=== PATIENT | female | born 1965 | race Caucasian/White ===

== ENCOUNTER → 2019-05-15 10:47 | Outpatient (CLI) | payer OTHER, SELFPAY ==
--- NOTE | 2019-05-15 10:50 | MM_ITS ---
MM Dig screening mamm BI w/CAD CAD Screening COMPARISON: Digital mammograms with CAD 07/11/2017 and needle localization and post biopsy specimen radiographs left breast 02/22/2017 INDICATION: There is a history of breast cancer patient's sister diagnosed in her 50s. There is been previous biopsy left breast for benign disease. TECHNIQUE: Standard CC and MLO images were obtained. R2 CAD reviewed. FINDINGS: Scattered fibroglandular densities are seen in the subareolar regions and central portions of each breast. Again noted is moderate post biopsy scarring left breast note appears less prominent on the previous study which was performed couple months after the biopsy. There is no suspicious lesion and no suspicious microcalcifications. IMPRESSION: Fibrofatty parenchyma with no suspicious lesion seen BI-RADS Category: 2 Benign Finding(s) RECOMMENDED FOLLOW-UP: 1YR - 1 YEAR FOLLOW-UP (A letter has been sent to the patient regarding results of the study.)
== END ==
PROVIDERS: PCP Internal Medicine; Visit Provider Nurse Practitioner Obstetrics & Gynecology
DX: Z12.31 Encounter for screening mammogram for malignant neoplasm of breast (principal)
CPT/HCPCS: 77067

== ENCOUNTER → 2020-04-06 13:47 | Outpatient (CLI) | payer OTHER, SELFPAY ==
[2020-04-06 15:38] LABS: Basophils % 0.4 % (0.1-2.0); Eosinophils # 0.1 K/mm3 (0.0-0.4); Eosinophils % 1.2 % (0.1-12.0); Hematocrit 42.6 % (37.0-47.0); Lymphocytes # 1.6 K/mm3 (0.7-4.5); Lymphocytes % 16.6 % (10-50); Mean Corpuscular HGB Conc 32.9 g/dL (31.8-35.4); Mean Corpuscular Hemoglobin 32.2 pg (27.0-31.2); Mean Platelet Volume 7.9 fl (7.4-10.4); Monocytes # 0.4 K/mm3 (0.1-1.0); Monocytes % 3.8 % (1.7-9.3); Neutrophils # 7.5 K/mm3 (1.8-7.8); Neutrophils % 77.9 % (37.0-80.0); Platelet Count 238 K/mm3 (142-424); Red Blood Count 4.35 M/mm3 (4.20-5.40); Red Cell Distribution Width 13.4 % (11.5-17.5); White Blood Count 9.6 K/mm3 (4.8-10.8)
[2020-04-06 15:58] LABS: Alanine Aminotransferase 23 U/L (12-78); Albumin Level 4.4 g/dl (3.5-5.0); Albumin/Globulin Ratio 1.7 (1.1-1.8); Alkaline Phosphatase 85 U/L (38-126); Anion Gap 14.4 mEq/L (5-15); Aspartate Amino Transferase 27 U/L (14-36); Bilirubin,Total 0.5 mg/dl (0.2-1.3); Blood Urea Nitrogen 9 mg/dl (7-17); Calcium 9.2 mg/dl (8.4-10.2); Carbon Dioxide 31 mmol/L (22.0-30.0); Chloride 98 mmol/L (98-107); Chol/HDL Ratio 1.8 (1-3.5); Cholesterol 126 mg/dl (140-200); Estimated Glomerular Filt Rate 88 ml/min (>60); GFR (African American) 106 ML/MIN (>60); Globulin 2.6 g/dL (1.3-3.2); Glucose 84 mg/dl (74-100); HDL Cholesterol 70 mg/dl (40-60); Potassium 4.4 mmoL/L (3.5-5.1); Sodium 139 mmol/L (136-145); Triglycerides 76 mg/dl (30-150); VLDL Cholesterol 15 mg/dL (0-40)
[2020-04-06 16:11] LABS: Direct LDL Cholesterol 54.49 mg/dL (100-129)
[2020-04-06 16:17] LABS: Free Thyroxine Index 2.8 ug/dL (5.93-13.13); T4 (Thyroxine) 10.1 ug/dl (5.53-11.0); Triiodothryronine (T3) Uptake 28 % (23.5-40.5)
== END ==
PROVIDERS: Visit Provider Nurse Practitioner Obstetrics & Gynecology
DX: Z00.00 Encounter for general adult medical examination without abnormal findings (principal); R53.82 Chronic fatigue, unspecified
CPT/HCPCS: 36415; 80053; 80061; 84436; 84443; 84479; 85025

== ENCOUNTER → 2020-06-02 10:43 | Outpatient (CLI) | payer OTHER, SELFPAY ==
--- NOTE | 2020-06-02 10:44 | MM_ITS ---
PROCEDURE: MM DIG SCREENING MAMM BI W/CAD Digital Breast Tomosynthesis Included CLINICAL INDICATION: screening xmg There is a history of breast cancer patient's sister diagnosed at age 47. there has been a previous biopsy left breast for benign disease. COMPARISON: MG DMDXUL DIG MAMM-DX UNI-LT W/CAD from 02/22/2017 MG DMSB DIG MAMM-SCREEN DUSTIN W/CAD from 07/11/2017 MG DIG MAMM-SCREEN DUSTIN from 05/15/2019 TECHNIQUE: Standard CC and MLO images and 3D Tomosynthesis was obtained. R2 CAD reviewed. FINDINGS: Moderate scattered fibroglandular densities are seen in both breast primarily subareolar regions. Stable but somewhat prominent post biopsy scarring is again seen central portion left breast with biopsy clips. There is no new or suspicious lesion in either breast and no suspicious microcalcifications. IMPRESSION: Fibrofatty parenchyma with stable post biopsy scarring left breast BI-RAD Category: 2 Benign Finding(s) FOLLOW-UP: 1YR 1 Year Follow-up (A letter has been sent to the patient regarding results of the study.) Dictated by: Dr. Denny Casillas MD 06/03/2020 08:14 Dr. Denny Casillas MD in [place] 06/03/2020 08:14
[2020-06-02 13:00] LABS: Free Thyroxine Index 4.1 ug/dL (5.93-13.13); T4 (Thyroxine) 12.7 ug/dl (5.53-11.0); Triiodothryronine (T3) Uptake 32 % (23.5-40.5)
[2020-06-02 13:14] LABS: Thyroid Stimulating Hormone 4.16 uIU/mL (0.465-4.68)
== END ==
PROVIDERS: PCP Internal Medicine; Visit Provider Nurse Practitioner Obstetrics & Gynecology
DX: Z12.31 Encounter for screening mammogram for malignant neoplasm of breast (principal)
CPT/HCPCS: 36415; 77063; 77067; 84436; 84443; 84479

== ENCOUNTER → 2020-06-02 11:18 | Outpatient (CLI) | payer OTHER, SELFPAY | PROVIDERS: Visit Provider Nurse Practitioner Obstetrics & Gynecology | DX: Z01.419 Encounter for gynecological examination (general) (routine) without abnormal findings (principal) | CPT/HCPCS: 36415; 84436; 84443; 84479 ==

== ENCOUNTER 2021-05-21 13:21 | Emergency (ER) | payer OTHER, SELFPAY ==
[2021-05-21 13:35] VITALS: BP 130/91; PULSE 79; RESP 22; TEMP 37.4; O2SAT 96; BMI 38.4
--- NOTE | 2021-05-21 14:02 | HMH.EDUTC ---
[facility] Disposition Clinical Impression: Sinusitis Qualifiers: Sinusitis location: unspecified location Chronicity: unspecified Qualified Code(s): J32.9 - Chronic sinusitis, unspecified Disposition: Home, Self-Care Condition on Discharge: Good Instructions: Sinusitis, Sinus Headache, DI for Sinusitis, Amoxicillin and Clavulanic Acid Additional Instructions: *Monitor Temp, Over the counter Motrin or Tylenol as directed/as needed Tylenol every 4 hours and Motrin every 6 hours (as long as your family doctor has told you that you can take it) for fever or pain. and straight to ER if unable to lower temp less than 101.0 after medication given *Warm salt water gargles may help to soothe the throat *Throat Lozenges *Warm fluids like tea with honey may help to soothe the throat *Sleep elevated *Humidifier/Vaporizer *Flonase 2 sprays in each nostril daily but be aware that it may take 2-3 days before you notice improvement Follow up IMMEDIATELY for new or worsening symptoms or no Noticeable improvement over the next 48-72 hours. 911 for difficulty breathing or swallowing You were tested for today for COVID19 your test result should be back in the next 24-48 hours, you may call to the [facility] to see if your test results are back in the next 48 hours [phone] [facility] hours are 9am-9pm You was given a handout with instructions for Self Quarantine and Self isolation for while you wait on test results and what to do if they are positive If you are positive the Health Dept will be contacting you also Prescriptions: Amoxicillin/Potassium Clav [Augmentin 875-125 Tablet] 1 tab PO Q12H 7 Days #14 tab Transmission Status: Pending to [facility] Fluticasone Propionate [Flonase 50mcg nasal spray 16gm] 1 spr NS DAILY #1 bottle Transmission Status: Pending to [facility] methylPREDNISolone [Medrol 4mg tab] 4 mg PO DIRECTED #21 tab Transmission Status: Pending to [facility] Referrals: Arnaldo Freed [Primary Care Provider] - As needed Time of Disposition: 14:13 Medical Decision Making - Jean Marie Inquiry Pt receiving controlled substance: No Jean Marie was queried for this patient: No Vital Signs: 05/21/21 13:35 Temperature 99.3 F Temperature Source Oral Pulse Rate [Right Brachial] 79 Respiratory Rate 22 Blood Pressure [Right Arm] 130/91 H Blood Pressure Mean [Right Arm] 104 Blood Pressure Source [Right Arm] Automatic Cuff Blood Pressure Position [Right Arm] Sitting 02 Sat by Pulse Oximetry 96 Oxygen Delivery Method Room Air Medical Decision Narrative: Patient states that she has taken augmentin and medrol dose pack in the past without complications or reactions [facility] HPI - General Stated complaint: congestion, sinus Time Seen by Provider: 05/21/21 14:02 Mode of Arrival: Ambulatory Source of Information: Patient Limitations: No Limitations Description of Symptoms (Recalled from Triage Doc. by RN): PATIENT C/O RUNNY NOSE, SNEEZING, AND SINUS HEADACHE SINCE YESTERDAY HEENT Symptoms (Recalled from RN notes): Yes Resp Symptoms (Recalled from RN notes): No Skin Symptoms (Recalled from RN notes): No MS Symptoms (Recalled from RN notes): No Functional Status (Recalled from RN notes): WNL - History of Present Illness Provider Complaint: Patient states that she felt like she had a sinus infection coming on for a couple of weeks and has continued to get worse State that for the last couple of days she has been having pain and pressure like feeling behind her eyes, feeling of pressure in her teeth, sinus headache with yellowish green mucous and cough and sneezing - Related Data Home Medications Medication Instructions Recorded Confirmed albuterol sulfate 90 mcg/actuation INHALATION 17 Days #18 g 10/04/18 02/15/21 aerosol inhaler sertraline 50 mg tablet PO 30 Days #30 tab 10/04/18 02/15/21 budesonide-formoterol HFA 160 2 puff INHALATION g 02/15/21 02/15/21 mcg-4.5 mcg/actuation aerosol
[2021-05-21 14:18] VITALS: BP 130/91; PULSE 79; RESP 22; TEMP 37.4; O2SAT 96
== END 2021-05-21 14:21 | disposition home or self-care (01) ==
PROVIDERS: Emergency Provider Nurse Practitioner; PCP Internal Medicine
DX: J32.9 Chronic sinusitis, unspecified (principal); F33.1 Major depressive disorder, recurrent, moderate
CPT/HCPCS: 99202; G0463; U0003

== ENCOUNTER → 2021-06-07 10:29 | Outpatient (CLI) | payer OTHER, SELFPAY ==
--- NOTE | 2021-06-07 10:30 | MM_ITS ---
PROCEDURE: MM DIG SCREENING MAMM BI W/CAD Digital Breast Tomosynthesis Included CLINICAL INDICATION: screening xmg COMPARISON: MG DMSB DIG MAMM-SCREEN DUSTIN W/CAD from 07/11/2017 MG MM DIG SCREENING MAMM BI W/CAD from 05/15/2019 MG MM DIG SCREENING MAMM BI W/CAD from 06/02/2020 TECHNIQUE: Standard CC and MLO images and 3D Tomosynthesis was obtained. R2 CAD reviewed. FINDINGS: Average fibroglandular tissue. No malignant appearing mass or malignant-appearing microcalcification. There postsurgical changes in the retroareolar region on the left with architectural distortion similar to the previous exam consistent with post surgical scarring. IMPRESSION: Benign findings. No change with no evidence of malignancy. Post biopsy scarring on the BI-RAD Category: 2 Benign Finding FOLLOW-UP: 1 YR 1 Year Follow-up (A letter has been sent to the patient regarding results of the study.) Dictated by: Ari Bar MD 06/11/2021 09:34 Ari Bar MD in [place] 06/11/2021 09:34
== END ==
PROVIDERS: PCP Internal Medicine; Visit Provider Nurse Practitioner Obstetrics & Gynecology
DX: Z12.31 Encounter for screening mammogram for malignant neoplasm of breast (principal)
CPT/HCPCS: 77063; 77067

== ENCOUNTER 2021-07-01 18:35 | Emergency (ER) | payer OTHER, SELFPAY ==
[2021-07-01 19:52] VITALS: BP 144/90; PULSE 75; RESP 18; TEMP 36.9; O2SAT 97; BMI 35.2
[2021-07-01 19:55] VITALS: BP 144/90; PULSE 75; RESP 18; TEMP 36.9
--- NOTE | 2021-07-01 20:12 | HMH.EDUTC ---
[facility] Disposition Clinical Impression: Exposure to COVID-19 virus Disposition: Home, Self-Care Condition on Discharge: Good Instructions: DI for COVID-19 (Suspected or Confirmed ), Preventing the Spread of Coronavirus Discharge Instructions Additional Instructions: *Monitor Temp, Over the counter Motrin or Tylenol as directed/as needed Tylenol every 4 hours and Motrin every 6 hours (as long as your family doctor has told you that you can take it) for fever or pain. and straight to ER if unable to lower temp less than 101.0 after medication given Follow up IMMEDIATELY for new or worsening symptoms or no Noticeable improvement over the next 48-72 hours. 911 for difficulty breathing or swallowing You were tested for today for COVID19 your test result should be back in the next 24-48 hours, You was given handout to access [facility] portal to get your results if you cant access or no internet access you may call the [facility] You was given a handout with instructions for Self Quarantine and Self isolation for while you wait on test results and what to do if they are positive If you are positive the Health Dept will be contacting you also Make sure to take your Vitamins Vit. C Vit D and Zinc if you can take them Referrals: Arnaldo Freed [Primary Care Provider] - As needed Forms: Work/School Release Medical Decision Making - Jean Marie Inquiry Pt receiving controlled substance: No Jean Marie was queried for this patient: No Vital Signs: 07/01/21 19:52 07/01/21 19:55 Temperature 98.4 F 98.4 F Temperature Source Oral Pulse Rate 75 Pulse Rate [Left] 75 Respiratory Rate 18 18 Blood Pressure 144/90 H Blood Pressure [Right Arm] 144/90 H Blood Pressure Mean [Right Arm] 108 02 Sat by Pulse Oximetry 97 Orders (Tests/Meds): ORDERS Category Date Time Status Covid-19 Nasal PCR ([facility]) Routine Lab 07/01/21 19:52 Received [facility] HPI - General Stated complaint: covid symptoms/test Time Seen by Provider: 07/01/21 20:12 Mode of Arrival: Ambulatory Source of Information: Patient Limitations: No Limitations Description of Symptoms (Recalled from Triage Doc. by RN): covid test. exposed. AREVALO HEENT Symptoms (Recalled from RN notes): Yes (AREVALO) Resp Symptoms (Recalled from RN notes): No Skin Symptoms (Recalled from RN notes): No MS Symptoms (Recalled from RN notes): No Functional Status (Recalled from RN notes): na - History of Present Illness Provider Complaint: Patient states that son lives in the house with her and today he tested positive for COVID states that she has been around him and she had a headache on and off for 3 days so when they found out he was positive today they came in to get tested too - Related Data Home Medications Medication Instructions Recorded Confirmed albuterol sulfate 90 mcg/actuation INHALATION 17 Days #18 g 10/04/18 02/15/21 aerosol inhaler sertraline 50 mg tablet PO 30 Days #30 tab 10/04/18 02/15/21 budesonide-formoterol HFA 160 2 puff INHALATION g 02/15/21 02/15/21 mcg-4.5 mcg/actuation aerosol inhaler Previous Rx's Medication Instructions Recorded levothyroxine 75 mcg tablet See Rx Instructions .ROUTE 08/31/20 .COMPLEX #87 tab Amoxicillin/Potassium Clav 1 tab PO Q12H 7 Days #14 tab 05/21/21 [Augmentin 875-125 Tablet] Fluticasone Propionate [Flonase 1 spr NS DAILY #1 bottle 05/21/21 50mcg nasal spray 16gm] methylPREDNISolone [Medrol 4mg 4 mg PO DIRECTED #21 tab 05/21/21 tab] Allergies Allergy/AdvReac Type Severity Reaction Status Date / Time No Known Allergies Allergy Verified 02/15/21 10:34 - Worker's Comp Is this a Worker's Comp case?: No [facility] History - Hepatitis A Screen Drug use history?: No High risk sexual behaviors?: No History of sexually transmitted infection?: No Currently employed?: No Childcare worker?: No Do you have indoor plumbing?: Yes Do you have electricity?: Yes Attestation statement:: This patient has been
== END 2021-07-01 20:31 | disposition home or self-care (01) ==
PROVIDERS: Emergency Provider Nurse Practitioner; PCP Internal Medicine
DX: Z20.822 Contact with and (suspected) exposure to COVID-19 (principal); R51.9 Headache, unspecified
CPT/HCPCS: 99202; C9803; G0463; U0003; U0005

== ENCOUNTER → 2021-07-19 16:15 | Outpatient (CLI) | payer OTHER, SELFPAY | PROVIDERS: PCP Internal Medicine; Visit Provider Nurse Practitioner | DX: Z20.822 Contact with and (suspected) exposure to COVID-19 (principal) | CPT/HCPCS: C9803; U0003; U0005 ==

== ENCOUNTER 2022-05-14 13:33 | Emergency (ER) | payer OTHER, SELFPAY ==
[2022-05-14 13:42] VITALS: BP 154/90; PULSE 99; RESP 16; TEMP 36.8; O2SAT 96; BMI 36.9
--- NOTE | 2022-05-14 13:53 | HMH.EDUTC ---
[facility] Disposition Clinical Impression: COPD exacerbation Disposition: Home, Self-Care Condition on Discharge: Good Instructions: Chronic Obstructive Pulmonary Disease, COPD: When to Call for Help Additional Instructions: Drink plenty of fluids. Take tylenol or ibuprofen for pain or fever. Take the medications as directed. Follow up with your regular doctor. GO TO THE ER FOR ANY WORSENING SYMPTOMS Quarantine until you know the results of your covid-19 test. Notify your school or workplace of your results and follow their instructions regarding return to work/school. Prescriptions: Azithromycin [Azithromycin 500mg Tab] 500 mg PO DAILY 5 Days #5 tab Transmission Status: Received by [facility] Benzonatate [Benzonatate 100mg cap] 100 mg PO TIDP PRN #30 cap PRN Reason: Cough Transmission Status: Received by [facility] methylPREDNISolone [Medrol] 4 mg PO DIRECTED 6 Days #21 packet Transmission Status: Received by [facility] Referrals: Arnaldo Freed [Primary Care Provider] - Time of Disposition: 14:02 Medical Decision Making - Medical Records Medical records reviewed: No: I reviewed the patient's medical records. - Jean Marie Inquiry Pt receiving controlled substance: No Vital Signs: 05/14/22 13:42 05/14/22 14:03 Temperature 98.3 F 98.3 F Temperature Source Oral Pulse Rate 99 H Pulse Rate [Left] 99 H Respiratory Rate 16 16 Blood Pressure 154/90 H Blood Pressure [Right Arm] 154/90 H Blood Pressure Mean [Right Arm] 111 02 Sat by Pulse Oximetry 96 [facility] HPI - General Stated complaint: soa Time Seen by Provider: 05/14/22 13:54 Mode of Arrival: Ambulatory Source of Information: Patient Limitations: No Limitations Description of Symptoms (Recalled from Triage Doc. by RN): patient comes in with complaints of shortness of air, patient does have COPD, and patient believes she may be having a flare up. HEENT Symptoms (Recalled from RN notes): No Resp Symptoms (Recalled from RN notes): Yes Skin Symptoms (Recalled from RN notes): No MS Symptoms (Recalled from RN notes): No Functional Status (Recalled from RN notes): n/a - History of Present Illness Provider Complaint: She states that for the past 3 days she has had worsening shortness of breath. She has a history of copd. She feels like she is having a an exacerbation of this. She is on 02 @ 1 lpm while she sleeps and prn. - Related Data Home Medications Medication Instructions Recorded Confirmed albuterol sulfate 90 mcg/actuation INHALATION 17 Days #18 g 10/04/18 08/30/21 aerosol inhaler sertraline 50 mg tablet PO 30 Days #30 tab 10/04/18 08/30/21 diphenhydramine HCl 25 mg capsule 25 mg PO cap 08/13/21 08/30/21 fluticasone furoate 100 1 inh INHALATION each 08/13/21 08/30/21 mcg-vilanterol 25 mcg/dose inhalation powder montelukast 10 mg tablet 10 mg PO tab 08/13/21 08/30/21 prednisone 10 mg tablet 10 mg PO tab 08/13/21 08/30/21 Previous Rx's Medication Instructions Recorded Fluticasone Propionate [Flonase 1 spr NS DAILY #1 bottle 05/21/21 50mcg nasal spray 16gm] oxybutynin chloride 5 mg tablet 5 mg PO TID #90 tab 08/30/21 levothyroxine 75 mcg tablet See Rx Instructions .ROUTE 09/13/21 .COMPLEX #87 tab clobetasol 0.05 % scalp solution 1 applic TOPICAL BID #100 ml 01/26/22 hydrocortisone 2.5 % topical cream 1 applic TOPICAL TID PRN #100 g 01/26/22 Azithromycin [Azithromycin 500mg 500 mg PO DAILY 5 Days #5 tab 05/14/22 Tab] Benzonatate [Benzonatate 100mg 100 mg PO TIDP PRN #30 cap 05/14/22 cap] methylPREDNISolone [Medrol] 4 mg PO DIRECTED 6 Days #21 05/14/22 packet Allergies Allergy/AdvReac Type Severity Reaction Status Date / Time No Known Allergies Allergy Verified 05/14/22 13:59 - Worker's Comp Is this a Worker's Comp case?: No [facility] History - Hepatitis A Screen Attestation statement:: This patient has been screened for Hepatitis A
[2022-05-14 14:03] VITALS: BP 154/90; PULSE 99; RESP 16; TEMP 36.8
== END 2022-05-14 14:08 | disposition home or self-care (01) ==
PROVIDERS: Emergency Provider Nurse Practitioner Family; PCP Internal Medicine
DX: J44.1 Chronic obstructive pulmonary disease with (acute) exacerbation (principal)
CPT/HCPCS: 99212; G0463

== ENCOUNTER → 2023-04-07 09:50 | Outpatient (CLI) | payer OTHER, SELFPAY ==
--- NOTE | 2023-04-07 09:51 | MM_ITS ---
PROCEDURE INFORMATION: Exam: MG Bilateral Screening 3D Mammography Exam date and time: 04/07/2023 9:49 AM Age: 57 years old Clinical indication: Screening examination. History of benign left excisional biopsy. Her sister had breast cancer at age 47. TECHNIQUE: Imaging protocol: Bilateral Screening tomosynthesis and 2D mammography including computer-aided detection (CAD) when performed. COMPARISON: 1. MG MM DIG SCREENING MAMM BI W/CAD 06/07/2021 10:30 AM 2. MG MM DIG SCREENING MAMM BI W/CAD 06/02/2020 10:49 AM 3. MG MM DIG SCREENING MAMM BI W/CAD 05/15/2019 11:11 AM 4. MG DMSB DIG MAMM-SCREEN DUSTIN W/CAD 07/11/2017 9:09 AM FINDINGS: MAMMOGRAPHY: Breast composition: There are scattered areas of fibroglandular density. Mass: No suspicious mass. Architectural distortion: Stable left central scarring and surgical clips with history of benign excisional biopsy. Calcifications: No suspicious calcifications. Asymmetric density: None. Skin thickening: None. Axillary adenopathy: None. IMPRESSION: No mammographic evidence of malignancy. Annual screening is recommended unless otherwise clinically indicated. ASSESSMENT: BI-RADS Category 2: Benign
== END ==
PROVIDERS: PCP Internal Medicine; Visit Provider Nurse Practitioner Obstetrics & Gynecology
DX: Z12.31 Encounter for screening mammogram for malignant neoplasm of breast (principal)
CPT/HCPCS: 77063; 77067

== ENCOUNTER 2023-12-18 15:19 | Emergency (ER) | payer OTHER, SELFPAY ==
[2023-12-18 15:30] VITALS: BP 124/75; PULSE 94; RESP 18; TEMP 36.7; O2SAT 92; BMI 34.9
--- NOTE | 2023-12-18 15:39 | EXP.UTC ---
Discharge Plan Disposition Patient Disposition: Home, Self-Care Condition: Good Prescriptions Prescriptions: New oseltamivir [Tamiflu] 75 mg capsule 75 mg PO BID Qty: 10 0RF methylprednisolone 4 mg Tablets,Dose Pack 4 mg PO DIRECTED 6 Days Qty: 21 0RF Rx Instructions: Take 1 pack as directed for 6 days guaifenesin [Mucinex] 600 mg tablet extended release 12hr 600 - 1,200 mg PO BIDP PRN (Reason: Congestion) Qty: 30 0RF amoxicillin [amoxicillin] 500 mg tablet 500 mg PO TID 10 Days Qty: 30 0RF No Action albuterol sulfate 2.5 mg /3 mL (0.083 %) solution for nebulization 2.5 mg inhalation BID Patient Comments: USE 1 VIAL IN NEBULIZER TWICE DAILY sertraline 50 mg tablet 50 mg PO DAILY 30 Days Qty: 30 albuterol sulfate 90 mcg/actuation HFA aerosol inhaler 1 inh INHALATION NEEDED PRN (Reason: Wheezing) 17 Days Qty: 18 levothyroxine 75 mcg tablet See Rx Instructions .ROUTE .COMPLEX Qty: 90 3RF Dose Instruction: TAKE 1 TABLET BY MOUTH ONCE DAILY-NEEDS AN APPOINTMENT FOR FURTHER REFILLS Rx Instructions: TAKE 1 TABLET BY MOUTH ONCE DAILY-NEEDS AN APPOINTMENT FOR FURTHER REFILLS Referrals Follow up/Referrals: Provider,Referral, MD [Primary Care Provider] - See instructions Activity Restrictions/Add. Instructions Additional Instructions/Restrictions: Drink plenty of fluids. Take tylenol or ibuprofen for pain or fever. Take the medications as directed. Follow up with your regular doctor. GO TO THE ER FOR ANY WORSENING SYMPTOMS Clinical Impressions Clinical Impression: Influenza A Instructions Patient Instructions: Influenza, DI for Influenza -- Adult, Oseltamivir Discharge ED Provider: Shayan Mancini [facility] General Stated complaint: flu exposure Time Seen by Provider: 12/18/23 15:39 History of Present Illness Provider Complaint: She states that for the past 2 days she has felt bad, had body aches, chills and malaise. Related Data Home Medications Medication Instructions Recorded Confirmed albuterol sulfate 90 mcg/actuation 1 inh inhalation NEEDED PRN 10/04/18 12/18/23 aerosol inhaler Wheezing 17 days #18 grams sertraline 50 mg tablet 50 mg PO DAILY 30 days #30 tabs 10/04/18 12/18/23 albuterol sulfate 2.5 mg/3 mL 2.5 mg inhalation BID 09/27/23 12/18/23 (0.083 %) solution for nebulization Previous Rx's Medication Instructions Recorded levothyroxine 75 mcg tablet See Rx Instructions .Route 10/30/23 .COMPLEX #90 tabs amoxicillin 500 mg tablet 500 mg PO TID 10 days #30 tabs 12/18/23 guaifenesin 600 mg tablet, 600 - 1,200 mg PO BIDP PRN 12/18/23 extended release 12 hr (Mucinex) Congestion #30 tabs methylprednisolone 4 mg tablets in 4 mg PO DIRECTED 6 days #21 tabs 12/18/23 a dose pack oseltamivir 75 mg capsule (Tamiflu) 75 mg PO BID #10 caps 12/18/23 Allergies Allergy/AdvReac Type Severity Reaction Status Date / Time No Known Allergies Allergy Verified 12/18/23 15:46 [facility] Disclaimer: The information contained in this section may have been updated after the patient was seen, as this information can be updated by other users. Medical History (Updated 12/18/23 @ 15:49 by Shayan Mancini APRN) Anxiety History of hypothyroidism Surgical History No significant past surgical history Family History Sister Cancer Mother Coronary artery disease Other Diabetes Social History Smoking Status: Former smoker alcohol intake: never substance use type: denies use current occupational status: other Travel in the last 8 weeks: None ROS Obtained: Yes All systems reviewed & no additional complaints except as documented Constitutional Constitutional: Reports chills and Reports fever(s) Eyes Eyes: Denies eye discharge ENT Ears, Nose, Mouth, and Throat: Reports as per HPI Cardiovascular Cardiovascular: Denies chest pain Respiratory Respiratory: Denies chest congestion and Reports cough Gastrointestinal Gastrointestingal: Reports nausea; Denies abdominal pain, constipation, cramping, diarrhea or vomiting Musculoskeletal Musculoskeletal: Denies arthralgias Integumentary/Breasts Skin/Breast: Denies rash Neurologic Neurologic: Denies paresthesias Physical Exam General General appearance: alert and in no apparent distress Eye Eye exam: Present normal appearance, PERRL and EOMI ENT ENT exam: Present mucous membranes moist and normal external ear exam Expanded ENT Exam External ear exam: Present normal external inspection TM/Canal exam: Bilateral TM: erythema and bulging Nose exam: Absent sinus tenderness Nasal speculum exam: Bilateral: normal Mouth exam: Present normal external inspection; Absent drooling Teeth exam: Present normal inspection Throat exam: Present tonsillar erythema and tonsillomegaly Neck Neck exam: Present normal inspection, full ROM and trachea midline; Absent tenderness, lymphadenopathy or thyromegaly Chest Chest inspection: Present normal inspection and symmetric chest wall rise; Absent tenderness or rash Respiratory Respiratory exam: Present normal lung sounds bilaterally; Absent respiratory distress, wheezes, stridor or accessory muscle use Cardiovascular Cardiovascular exam: Present regular rate, normal rhythm and normal heart sounds Abdominal Exam Abdominal exam: Present soft; Absent distention, tenderness, guarding, rebound or rigidity Extremities Exam Extremities exam: Present normal inspection, full ROM and normal capillary refill; Absent tenderness or calf tenderness Back Exam Back exam: Present normal inspection and full ROM; Absent tenderness Neurological Exam Neurological exam: Present alert and oriented X3 Psychiatric Psychiatric exam: Present normal affect and normal mood Skin Skin exam: Present warm, dry, intact and normal color Lymphatic Lymphatic Findings: no adenopathy Medical Decision Making Medical Records Medical records reviewed: No I reviewed the patient's medical records. Jean Marie Inquiry Pt receiving controlled substance: No Lab Data Lab results reviewed: Yes I reviewed the patient's lab results.
[2023-12-18 15:58] VITALS: BP 124/75; PULSE 94; RESP 18; TEMP 36.7; O2SAT 92
== END 2023-12-18 15:58 | disposition home or self-care (01) ==
PROVIDERS: Emergency Provider Nurse Practitioner Family
DX: J10.1 Influenza due to other identified influenza virus with other respiratory manifestations (principal); M79.18 Myalgia, other site; R05.9 Cough, unspecified; R53.81 Other malaise; Z87.891 Personal history of nicotine dependence
CPT/HCPCS: 99212; 99214; G0463

== ENCOUNTER 2024-04-26 15:55 | Emergency (ER) | payer MEDICARE, SELFPAY ==
[2024-04-26 16:10] VITALS: BP 143/71; PULSE 78; RESP 20; TEMP 36.8; O2SAT 98; BMI 31.0
--- NOTE | 2024-04-26 16:25 | EXP.UTC ---
Discharge Plan Disposition Patient Disposition: Home, Self-Care Condition: Good Prescriptions Prescriptions: New erythromycin 5 mg/gram (0.5 %) ointment 0.5 inch ophthalmic (eye) QID 7 Days Qty: 3.5 0RF amoxicillin 875 mg tablet 875 mg PO Q12H Qty: 20 0RF No Action sertraline 50 mg tablet 75 mg PO DAILY 30 Days Qty: 30 levothyroxine 75 mcg tablet 75 mcg PO DAILY Patient Comments: TAKE 1 TABLET BY MOUTH ONCE DAILY roflumilast [Daliresp] 500 mcg Tablet 500 mcg PO DAILY Trelegy Ellipta 100-62.5-25 mcg Blister With Device 1 inh INHALATION DAILY Referrals Follow up/Referrals: Patel Robles MD [Primary Care Provider] - See instructions Activity Restrictions/Add. Instructions Additional Instructions/Restrictions: Use the eye drops as directed. Strict hand washing in the house hold, because conjunctivitis is very contagious. Follow up with your regular doctor. GO TO THE ER FOR ANY WORSENING SYMPTOMS OR CONCERNS Take the oral antibiotics (amoxicillin) as directed. Follow up with your dentist as discussed. Clinical Impressions Clinical Impression: Conjunctivitis of left eye, Dental abscess Instructions Patient Instructions: How to Instill Eye Drops, Conjunctivitis, DI for Tooth Abscess, DI for Conjunctivitis Discharge ED Provider: Shayan Mancini [facility] General Stated complaint: Left eye red and swollen,? FB Mode of Arrival: Ambulatory Source of Information: Patient Limitations: No Limitations Time Seen by Provider: 04/26/24 16:25 Description of Symptoms (Recalled from Triage Doc. by RN): PATIENT STATES SHE THINKS SOMETHING IS IN HER LEFT EYE AND POSSIBLE ABSCESS TO TOP LEFT TOOTH HEENT Symptoms (Recalled from RN notes): Yes Resp Symptoms (Recalled from RN notes): No Skin Symptoms (Recalled from RN notes): No MS Symptoms (Recalled from RN notes): No Functional Status (Recalled from RN notes): WNL History of Present Illness Provider Complaint: She states that since early this morning she has had left eye irritation and redness. She denies any injury or foreign body. She denies any change in her vision. She also has been having worsening dental pain and redness of her gums around a tooth in her right upper jaw for the past 1 week. Related Data Home Medications Medication Instructions Recorded Confirmed sertraline 50 mg tablet 75 mg PO DAILY 30 days #30 tabs 10/04/18 04/26/24 fluticasone fur. 100 mcg-umeclid 1 inh inhalation DAILY 04/26/24 04/26/24 62.5 mcg-vilant 25 mcg inhalat.powder (Trelegy Ellipta) levothyroxine 75 mcg tablet 75 mcg PO DAILY 04/26/24 04/26/24 roflumilast 500 mcg tablet 500 mcg PO DAILY 04/26/24 04/26/24 (Daliresp) Previous Rx's Medication Instructions Recorded amoxicillin 875 mg tablet 875 mg PO Q12H #20 tabs 04/26/24 erythromycin 5 mg/gram (0.5 %) eye 0.5 inch ophthalmic (eye) QID 7 04/26/24 ointment days #3.5 grams Allergies Allergy/AdvReac Type Severity Reaction Status Date / Time No Known Allergies Allergy Verified 12/18/23 15:46 Worker's Comp Is this a Worker's Comp case?: No [facility] Disclaimer: The information contained in this section may have been updated after the patient was seen, as this information can be updated by other users. Medical History (Updated 04/26/24 @ 17:32 by Shayan Mancini APRN) COPD (chronic obstructive pulmonary disease) Anxiety History of hypothyroidism Surgical History (Updated 04/26/24 @ 16:27 by Reanna James RN) History of tubal ligation Family History Sister Cancer Mother Coronary artery disease Other Diabetes Social History Smoking Status: Former smoker alcohol intake: never substance use type: denies use current occupational status: other Travel in the last 8 weeks: None ROS Obtained: Yes All systems reviewed & no additional complaints except as documented Constitutional Constitutional: Denies chills and Denies fever(s) Eyes Eyes: Reports as per HPI, Denies change in vision and Reports eye discharge ENT Ears, Nose, Mouth, and Throat: Denies dizziness, Denies otalgia and Denies sore throat Cardiovascular Cardiovascular: Denies chest pain Respiratory Respiratory: Denies shortness of breath, Denies chest congestion, Denies cough, Denies stridor and Denies wheezing Gastrointestinal Gastrointestingal: Denies nausea or vomiting Musculoskeletal Musculoskeletal: Reports system reviewed and no additional complaints, except as documented and Denies arthralgias Integumentary/Breasts Skin/Breast: Denies rash Neurologic Neurologic: Denies dizziness and Denies paresthesias Allergic/Immunologic Allergic/Immunologic: Denies wheezing Physical Exam General General appearance: alert and in no apparent distress Head Head exam: atraumatic, normocephalic and normal inspection Eye Eye exam: Present PERRL and EOMI Expanded Eye Exam Eyelids: left: erythema and swelling eyelids and right: normal inspection Pupils: Left: size (2), Right: size (2) and Bilateral: regular, round and reactive Sclera/Conjunctival: left: injection and exudate and right: normal inspection ENT ENT exam: Present mucous membranes moist, TM's normal bilaterally and normal external ear exam Expanded ENT Exam Nose exam: Absent sinus tenderness Nasal speculum exam: Bilateral: normal Mouth exam: Present normal external inspection; Absent drooling Teeth exam: Present dental caries, fractured tooth #, dental tenderness # and gingival swelling Throat exam: Present normal inspection Neck Neck exam: Present normal inspection, full ROM and trachea midline; Absent meningismus or lymphadenopathy Chest Chest inspection: Present normal inspection and symmetric chest wall rise; Absent tenderness Respiratory Respiratory exam: Present normal lung sounds bilaterally; Absent respiratory distress Cardiovascular Cardiovascular exam: Present regular rate and normal rhythm; Absent JVD Abdominal Exam Abdominal exam: Present soft and normal bowel sounds; Absent distention, tenderness or guarding Extremities Exam Extremities exam: Present normal inspection, full ROM and normal capillary refill; Absent calf tenderness Back Exam Back exam: Present normal inspection; Absent tenderness Neurological Exam Neurological exam: Present alert and oriented X3 Psychiatric Psychiatric exam: Present normal affect and normal mood Skin Skin exam: Present warm, dry, intact and normal color Lymphatic Lymphatic Findings: no adenopathy Medical Decision Making Medical Records Medical records reviewed: No I reviewed the patient's medical records. Jean Marie Inquiry Pt receiving controlled substance: No Vital Signs: 04/26/24 16:10 Temperature 98.3 F Temperature Source Oral Pulse Rate [Left Brachial] 78 Respiratory Rate 20 Blood Pressure [Left Arm] 143/71 H Blood Pressure Mean [Left Arm] 95 Blood Pressure Source [Left Arm] Automatic Cuff Blood Pressure Position [Left Arm] Sitting 02 Sat by Pulse Oximetry 98 Oxygen Delivery Method Room Air Procedures Risk/Benefits of Procedure(s) Were Explained: Yes Eye Exam/FB Removal Location: eye (L) Topical anesthetic used: tetracaine Fluorescein Stick(s) used: Yes Time Out performed: Yes Procedure performed under: direct visualization with magnification Foreign body: other (none) Evidence of corneal penetration: No Technique: irrigation Eye irrigated w/saline (#ccs): 25 Patient tolerated procedure: well and no complications (She tolerated this well. no foreign body or corneal abrasion noted. )
[2024-04-26] MEDS: TETRACAINE 0.5% OPTH SOL 15ML OP (17:25)
[2024-04-26] MEDS: EYE WASH IRRIGATION SOLN 118ML BOTTLE 120 ML OP (17:25)
[2024-04-26] MEDS: FLUORESCEIN SODIUM 1MG STRIP 1 MG OP (17:25)
[2024-04-26 17:33] VITALS: BP 143/71; PULSE 78; RESP 20; TEMP 36.8; O2SAT 98
== END 2024-04-26 17:35 | disposition home or self-care (01) ==
PROVIDERS: Emergency Provider Nurse Practitioner Family; PCP Internal Medicine
DX: H10.32 Unspecified acute conjunctivitis, left eye (principal); K04.7 Periapical abscess without sinus
CPT/HCPCS: 99212; 99214; G0463

== ENCOUNTER 2024-07-03 19:53 | Inpatient (IN) | payer MEDICARE, SELFPAY ==
[2024-07-03] VITALS (8 sets, daily range): BP systolic 120–149; BP diastolic 70–87; PULSE 74–101; RESP 20; TEMP 37.7; O2SAT 94–98; BMI 34.9
--- NOTE | 2024-07-03 20:00 | XR_ITS ---
PROCEDURE INFORMATION: Exam: XR Chest Exam date and time: 07/03/2024 8:06 PM Age: 59 years old Clinical indication: Dyspnea TECHNIQUE: Imaging protocol: Radiologic exam of the chest. Views: 2 views. COMPARISON: No relevant prior studies available. FINDINGS: Lungs: Unremarkable. No consolidation. Pleural spaces: Unremarkable. No pleural effusion. No pneumothorax. Heart/Mediastinum: Unremarkable. No cardiomegaly. Bones/joints: Unremarkable. IMPRESSION: No acute findings.
--- NOTE | 2024-07-03 20:00 | ED_ITS ---
<Statement entered by Paula Parker DO - 07/04/24 15:00> I was consulted by the PALLAVI, and we discussed the complexity of the problems being addressed. I approved the treatment and management plan for this patient's care in the emergency department, thus performing a substantive portion of the medical decision making. Paula Parker DO Discharge Plan Disposition Patient Disposition: Admitted Condition: Fair Chief Complaint: Upper Respiratory Infection Clinical Impressions Clinical Impression: Acute exacerbation of chronic obstructive pulmonary disease, Acute and chronic respiratory failure with hypoxia Discharge ED Provider: Paula Parker General Adult HPI <LAST Borrego - Last Filed: 07/03/24 22:04> General Chief complaint: Upper Respiratory Infection Stated complaint: Difficulty breathing pt is on O2 Time Seen by Provider: 07/03/24 20:00 History of Present Illness HPI narrative: Patient presents for evaluation of shortness of breath. Patient has had increasing shortness of breath since Monday. She went to an urgent treatment center where she was given steroids onsite and a prescription for doxycycline however they did no lab work but no chest x-ray. At baseline patient does not wear oxygen but during the COVID pandemic she actually required oxygen for quite some time but has since been off. Patient has been wearing oxygen since Monday 4 L/min. She states that she feels no better after those interventions and presents today for evaluation. She denies chest pain fever chills hemoptysis hematochezia melena nausea vomiting diarrhea Related Data Home Medications ?Medication ?Instructions ?Recorded ?Confirmed sertraline 50 mg tablet 75 mg PO DAILY 30 days #30 tabs 10/04/18 04/26/24 fluticasone fur. 100 mcg-umeclid 1 inh inhalation DAILY 04/26/24 04/26/24 62.5 mcg-vilant 25 mcg inhalat.powder (Trelegy Ellipta) levothyroxine 75 mcg tablet 75 mcg PO DAILY 04/26/24 04/26/24 roflumilast 500 mcg tablet 500 mcg PO DAILY 04/26/24 04/26/24 (Daliresp) Previous Rx's ?Medication ?Instructions ?Recorded amoxicillin 875 mg tablet 875 mg PO Q12H #20 tabs 04/26/24 erythromycin 5 mg/gram (0.5 %) eye 0.5 inch ophthalmic (eye) QID 7 04/26/24 ointment days #3.5 grams Allergies Allergy/AdvReac Type Severity Reaction Status Date / Time No Known Allergies Allergy Verified 12/18/23 15:46 PFSH <LAST Borrego - Last Filed: 07/03/24 22:04> [facility] Disclaimer: The information contained in this section may have been updated after the patient was seen, as this information can be updated by other users. Medical History (Updated 07/03/24 @ 22:04 by LAST Borrego) COPD (chronic obstructive pulmonary disease) Anxiety History of hypothyroidism Surgical History (Updated 04/26/24 @ 16:27 by Reanna James RN) History of tubal ligation Family History Sister Cancer Mother Coronary artery disease Other Diabetes Social History Smoking Status: Light tobacco smoker alcohol intake: never substance use type: denies use current occupational status: other Travel in the last 8 weeks: None <LAST Borrego - Last Filed: 07/03/24 22:04> ROS Obtained: Yes Systems reviewed as appropriate & no additional complaints except as documented Physical Exam <LAST Borrego - Last Filed: 07/03/24 22:04> General General appearance: alert and in no apparent distress Respiratory Respiratory exam: Present wheezes (In all 4 galeas ) and accessory muscle use; Absent respiratory distress or stridor Cardiovascular Cardiovascular exam: Present regular rate Neurological Exam Neurological exam: Present alert and oriented X3 Medical Decision Making <LAST Borrego - Last Filed: 07/03/24 22:04> Medical Records Medical records reviewed: Yes I reviewed the patient's medical records. Screening: Per USPSTF and CDC recommendations, given the prevalence of disease in our region, it is our hospital?s policy to screen for HIV and viral Hepatitis for all patients aged 18 and over and those with ongoing risk factors. Jean Marie Inquiry Pt receiving controlled substance: No Vital Signs: 07/03/24 19:54 07/03/24 20:01 07/03/24 20:35 Temperature 99.9 F H Temperature Source Oral Pulse Rate 94 H Pulse Rate [Right] 92 H Respiratory Rate 20 Blood Pressure 140/78 Blood Pressure [Right Arm] 140/78 Blood Pressure Mean [Right Arm] 98 Blood Pressure Source Blood Pressure Source [Right Arm] Automatic Cuff Blood Pressure Position Blood Pressure Position [Right Arm] Supine 02 Sat by Pulse Oximetry 94 L 95 98 Oxygen Delivery Method Nasal Cannula Nasal Cannula Oxygen Flow Rate (LPM) 3 3 07/03/24 20:35 07/03/24 20:35 07/03/24 20:47 Temperature Temperature Source Pulse Rate 78 74 98 H Pulse Rate [Right] Respiratory Rate 20 Blood Pressure 149/87 H Blood Pressure [Right Arm] Blood Pressure Mean [Right Arm] Blood Pressure Source Automatic Cuff Blood Pressure Source [Right Arm] Blood Pressure Position Sitting Blood Pressure Position [Right Arm] 02 Sat by Pulse Oximetry 98 Oxygen Delivery Method Nasal Cannula Oxygen Flow Rate (LPM) 3 07/03/24 21:01 07/03/24 21:30 Temperature Temperature Source Pulse Rate 96 H 101 H Pulse Rate [Right] Respiratory Rate Blood Pressure 140/73 143/85 H Blood Pressure [Right Arm] Blood Pressure Mean [Right Arm] Blood Pressure Source Blood Pressure Source [Right Arm] Blood Pressure Position Blood Pressure Position [Right Arm] 02 Sat by Pulse Oximetry 97 98 Oxygen Delivery Method Oxygen Flow Rate (LPM) Lab Data Lab results reviewed: Yes I reviewed the patient's lab results. Lab Results 07/03/24 20:06: VBG pH 7.31, VBG pCO2 59.2 H, VBG pO2 31.0, VBG HCO3 29.0, VBG Total CO2 30.8 H, VBG O2 Saturation 59.7, VBG Base Excess 2.7 H, VBG Lactic Acid 1.0 07/03/24 20:28: WBC 18.0 H, RBC 5.01, Hgb 15.3, Hct 50.1 H, MCV 100.1 H, MCH 30.6, MCHC 30.5 L, RDW 14.8, Plt Count 259, MPV 7.8, Neut % (Auto) 92.6 H, Lymph % (Auto) 3.6 L, [place] % (Auto) 2.7, Eos % (Auto) 0.5, Baso % (Auto) 0.7, Neut # (Auto) 16.7 H, Lymph # (Auto) 0.6 L, [place] # (Auto) 0.5, Eos # (Auto) 0.1, Baso # (Auto) 0.1, Total Counted 100, Neutrophils % (Manual) 95 H, Lymphocytes % (Manual) 4 L, Monocytes % (Manual) 1 L, Platelet Estimate Normal, Macrocytosis 1+, Sodium 141, Potassium 4.0, Chloride 103, Carbon Dioxide 33 H, Anion Gap 9.0, BUN 15, Creatinine 0.80, Estimated Creat Clear 128, Estimated GFR 74, Est GFR ( Amer) 89, Glucose 109 H, Calcium 9.3, Magnesium 1.8, Total Bilirubin 0.7, AST 29, ALT 27, Alkaline Phosphatase 90, Total Protein 7.8, Albumin 4.3, G lobulin 3.5 H, Albumin/Globulin Ratio 1.2, HIV 1&2 Antibody Rapid Nonreactive 07/03/24 20:28 07/03/24 20:28 Orders (Tests/Meds): ED MEDICATIONS Generic Name Dose Route Start Last Admin Trade Name Freq PRN Reason Stop Dose Admin Acetaminophen 650 mg 07/03/24 21:50 Acetaminophen 325mg Tab PO 08/02/24 21:49 Q4HP PRN Fever or Mild Pain (1-3) Enoxaparin Sodium 40 mg 07/04/24 09:00 Enoxaparin 40mg/0.4ml Syringe SQ 08/03/24 08:59 DAILY PRANAY Morphine Sulfate 2 mg 07/03/24 21:50 Morphine 2mg/Ml Syringe IV 08/02/24 21:49 Q2HP PRN Severe Pain (7-10) Nicotine 21 mg 07/03/24 21:50 Nicotine 21mg/24hr Patch TD 08/02/24 21:49 DAILYP PRN Nicotine Cravings Ondansetron HCl 4 mg 07/03/24 21:50 Ondansetron 4mg/2ml Vial IV 08/02/24 21:49 Q8HP PRN Nausea Pantoprazole Sodium 40 mg 07/04/24 09:00 Pantoprazole 40mg Tablet PO 08/03/24 08:59 DAILY PRANAY Discontinued Medications Generic Name Dose Route Start Last Admin Trade Name Freq PRN Reason Stop Dose Admin Albuterol/Ipratropium 9 ml 07/03/24 20:00 07/03/24 20:35 Ipratropium/Albuterol 3 Ml Neb IH 07/03/24 20:01 9 ml ONCE ONE Administration Methylprednisolone Sodium Succinate 125 mg 07/03/24 20:00 07/03/24 20:40 Methylprednisolone Sod Succ 125mg Vial IV 07/03/24 20:01 125 mg ONCE ONE Administration ORDERS Category Date Time Status Chest XR 2 view (NOT portable) [XR chest 2V] Stat Exams 07/03/24 20:00 Completed CBC w/Auto Diff [Complete Blood Count Auto Diff] Stat Lab 07/03/24 20:28 Completed CMP [Comprehensive Metabolic Panel] Stat Lab 07/03/24 20:28 Completed Complete Blood Count Auto Diff AMLAB Lab 07/04/24 06:00 Ordered Comprehensive Metabolic Panel AMLAB Lab 07/04/24 06:00 Ordered Full Resp Panel w/COVID ([facility]) Routine Lab 07/03/24 20:43 Received HIV (1&2) Antibody Rapid Stat Lab 07/03/24 20:28 Completed Hep C Ab with Reflex to RNA Stat Lab 07/03/24 20:28 Received Magnesium AMLAB Lab 07/04/24 06:00 Ordered Magnesium Stat Lab 07/03/24 20:28 Completed VBG [Venous Blood Gas] Stat RT 07/03/24 20:06 Completed Medical Decision Narrative: In summary patient is a 59-year-old female who presents to the emergency department for evaluation of shortness of breath. Patient is hemodynamically stable upon arrival, afebrile. 92% on 4 L per nasal cannula. Physical exam is remarkable for expiratory wheezes in all 4 galeas and slightly diminished breath sounds at the bilateral bases. Differential diagnosis includes COPD exacerbation versus pneumonia etc. Initial workup will be conducted with full respiratory panel, plain film chest x-ray, hematologic labs. Initial interventions include Solu-Medrol DuoNeb. Initial workup reviewed by me shows a white count of 18,000 with neutrophilic shift however patient has been on steroids and my informal interpretation of her plain film chest x-ray shows chronic changes with possible right lower lobe haziness but no definitive infiltrate. Upon repeat evaluation patient drops her oxygen saturation off of oxygen down to the 70s. Given this I had interactive discussion with hospital medicine and she will be admitted for further evaluation and care <Paula Parker, DO - Last Filed: 07/03/24 20:10> Vital Signs: 07/03/24 19:54 07/03/24 20:01 07/03/24 20:35 Temperature 99.9 F H Temperature Source Oral Pulse Rate 94 H Pulse Rate [Right] 92 H Respiratory Rate 20 Blood Pressure 140/78 Blood Pressure [Right Arm] 140/78 Blood Pressure Mean [Right Arm] 98 Blood Pressure Source Blood Pressure Source [Right Arm] Automatic Cuff Blood Pressure Position Blood Pressure Position [Right Arm] Supine 02 Sat by Pulse Oximetry 94 L 95 98 Oxygen Delivery Method Nasal Cannula Nasal Cannula Oxygen Flow Rate (LPM) 3 3 07/03/24 20:35 07/03/24 20:35 07/03/24 20:47 Temperature Temperature Source Pulse Rate 78 74 98 H Pulse Rate [Right] Respiratory Rate 20 Blood Pressure 149/87 H Blood Pressure [Right Arm] Blood Pressure Mean [Right Arm] Blood Pressure Source Automatic Cuff Blood Pressure Source [Right Arm] Blood Pressure Position Sitting Blood Pressure Position [Right Arm] 02 Sat by Pulse Oximetry 98 Oxygen Delivery Method Nasal Cannula Oxygen Flow Rate (LPM) 3 07/03/24 21:01 07/03/24 21:30 Temperature Temperature Source Pulse Rate 96 H 101 H Pulse Rate [Right] Respiratory Rate Blood Pressure 140/73 143/85 H Blood Pressure [Right Arm] Blood Pressure Mean [Right Arm] Blood Pressure Source Blood Pressure Source [Right Arm] Blood Pressure Position Blood Pressure Position [Right Arm] 02 Sat by Pulse Oximetry 97 98 Oxygen Delivery Method Oxygen Flow Rate (LPM) Lab Data Lab Results 07/03/24 20:06: VBG pH 7.31, VBG pCO2 59.2 H, VBG pO2 31.0, VBG HCO3 29.0, VBG Total CO2 30.8 H, VBG O2 Saturation 59.7, VBG Base Excess 2.7 H, VBG Lactic Acid 1.0 07/03/24 20:28: WBC 18.0 H, RBC 5.01, Hgb 15.3, Hct 50.1 H, MCV 100.1 H, MCH 30.6, MCHC 30.5 L, RDW 14.8, Plt Count 259, MPV 7.8, Neut % (Auto) 92.6 H, Lymph % (Auto) 3.6 L, [place] % (Auto) 2.7, Eos % (Auto) 0.5, Baso % (Auto) 0.7, Neut # (Auto) 16.7 H, Lymph # (Auto) 0.6 L, [place] # (Auto) 0.5, Eos # (Auto) 0.1, Baso # (Auto) 0.1, Total Counted 100, Neutrophils % (Manual) 95 H, Lymphocytes % (Manual) 4 L, Monocytes % (Manual) 1 L, Platelet Estimate Normal, Macrocytosis 1+, Sodium 141, Potassium 4.0, Chloride 103, Carbon Dioxide 33 H, Anion Gap 9.0, BUN 15, Creatinine 0.80, Estimated Creat Clear 128, Estimated GFR 74, Est GFR ( Amer) 89, Glucose 109 H, Calcium 9.3, Magnesium 1.8, Total Bilirubin 0.7, AST 29, ALT 27, Alkaline Phosphatase 90, Total Protein 7.8, Albumin 4.3, G lobulin 3.5 H, Albumin/Globulin Ratio 1.2, HIV 1&2 Antibody Rapid Nonreactive Orders (Tests/Meds): ED MEDICATIONS Generic Name Dose Route Start Last Admin Trade Name Freq PRN Reason Stop Dose Admin Acetaminophen 650 mg 07/03/24 21:50 Acetaminophen 325mg Tab PO 08/02/24 21:49 Q4HP PRN Fever or Mild Pain (1-3) Enoxaparin Sodium 40 mg 07/04/24 09:00 Enoxaparin 40mg/0.4ml Syringe SQ 08/03/24 08:59 DAILY PRANAY Morphine Sulfate 2 mg 07/03/24 21:50 Morphine 2mg/Ml Syringe IV 08/02/24 21:49 Q2HP PRN Severe Pain (7-10) Nicotine 21 mg 07/03/24 21:50 Nicotine 21mg/24hr Patch TD 08/02/24 21:49 DAILYP PRN Nicotine Cravings Ondansetron HCl 4 mg 07/03/24 21:50 Ondansetron 4mg/2ml Vial IV 08/02/24 21:49 Q8HP PRN Nausea Pantoprazole Sodium 40 mg 07/04/24 09:00 Pantoprazole 40mg Tablet PO 08/03/24 08:59 DAILY PRANAY Discontinued Medications Generic Name Dose Route Start Last Admin Trade Name Freq PRN Reason Stop Dose Admin Albuterol/Ipratropium 9 ml 07/03/24 20:00 07/03/24 20:35 Ipratropium/Albuterol 3 Ml Neb IH 07/03/24 20:01 9 ml ONCE ONE Administration Methylprednisolone Sodium Succinate 125 mg 07/03/24 20:00 07/03/24 20:40 Methylprednisolone Sod Succ 125mg Vial IV 07/03/24 20:01 125 mg ONCE ONE Administration ORDERS Category Date Time Status Chest XR 2 view (NOT portable) [XR chest 2V] Stat Exams 07/03/24 20:00 Completed CBC w/Auto Diff [Complete Blood Count Auto Diff] Stat Lab 07/03/24 20:28 Completed CMP [Comprehensive Metabolic Panel] Stat Lab 07/03/24 20:28 Completed Complete Blood Count Auto Diff AMLAB Lab 07/04/24 06:00 Ordered Comprehensive Metabolic Panel AMLAB Lab 07/04/24 06:00 Ordered Full Resp Panel w/COVID ([facility]) Routine Lab 07/03/24 20:43 Received HIV (1&2) Antibody Rapid Stat Lab 07/03/24 20:28 Completed Hep C Ab with Reflex to RNA Stat Lab 07/03/24 20:28 Received Magnesium AMLAB Lab 07/04/24 06:00 Ordered Magnesium Stat Lab 07/03/24 20:28 Completed VBG [Venous Blood Gas] Stat RT 07/03/24 20:06 Completed ECG Data Tracing #1: I reviewed this ECG and interpreted as documented below: Normal sinus rhythm with a ventricular rate of [address] changes concerning for ischemia. Normal axis and intervals ECG initial impression date: 07/03/24 ECG initial impression time: 20:05 Critical Care <LAST Borrego - Last Filed: 07/03/24 22:04> Critical Care Time Critical Care Time: No
--- NOTE | 2024-07-03 20:03 | ECG_ITS ---
APPROVED REPORT Exam: Resting ECG HR:92 bpm ECG Measurements Heart Rate 92 AXES NC 145 P 67 QRSd 93 QRS 86 QT 332 T 63 QTc 382 Conclusion SINUS RHYTHM LOW QRS VOLTAGE IN PRECORDIAL LEADS [QRS DEFLECTION < 1.0 mV IN CHEST LEADS] BORDERLINE ECG Electronically signed by : SAHIL GREEN, 07/03/2024 22:20:44
[2024-07-03 20:31] LABS: VBG Base Excess 2.7 mmol/L (-2.4-2.3); VBG Oxygen Saturation 59.7 % (50-70); VBG PH 7.31 mmol/L (7.31-7.41); VBG Total CO2 30.8 mmol/L (23-27)
[2024-07-03 20:34] LABS: VBG PCO2 59.2 mmol/L (35-51)
[2024-07-03] MEDS: IPRATROPIUM/ALBUTEROL 3 ML NEB 9 ML IH (20:35)
[2024-07-03] MEDS: METHYLPREDNISOLONE SOD SUCC 125MG VIAL 125 MG IV (20:40)
[2024-07-03 20:49] LABS: Adenovirus,PCR Not Detected (NotDetected); Coronavirus 229E Not Detected (NotDetected); Coronavirus NL63 Not Detected (NotDetected); Coronavirus OC43 Not Detected (NotDetected); Coronovirus HKU1,PCR Not Detected (NotDetected); Human Metapneumovirus Not Detected (NotDetected); Influenza A, PCR Not Detected (NotDetected); Influenza AH1, 2009 Not Detected (NotDetected); Influenza AH1, PCR Not Detected (NotDetected)
[2024-07-03 20:50] LABS: Bordetella Pertussis Not Detected (NotDetected); Chlamydophila Pneumoniae, PCR Not Detected (NotDetected); Coronavirus 19, PCR Not Detected (NotDetected); Influenza AH3,PCR Not Detected (NotDetected); Influenza B, PCR Not Detected (NotDetected); Mycoplasma Pneumoniae, PCR Not Detected (NotDetected); Parainfluenza 1, PCR Not Detected (NotDetected); Parainfluenza 2, PCR Not Detected (NotDetected); Parainfluenza 3, PCR Not Detected (NotDetected); Parainfluenza 4, PCR Not Detected (NotDetected); Respiratory Syncytial Virus Not Detected (NotDetected)
[2024-07-03 20:51] LABS: Basophils # 0.1 K/mm3 (0-0.2); Basophils % 0.7 % (0.1-2.0); Eosinophils # 0.1 K/mm3 (0.0-0.4); Eosinophils % 0.5 % (0.1-12.0); Hematocrit 50.1 % (37.0-47.0); Hemoglobin 15.3 g/dL (12.2-16.2); Lymphocytes # 0.6 K/mm3 (0.7-4.5); Lymphocytes % 3.6 % (10-50); Mean Corpuscular HGB Conc 30.5 g/dL (31.8-35.4); Mean Corpuscular Hemoglobin 30.6 pg (27.0-31.2); Mean Corpuscular Volume 100.1 fl (81-99); Mean Platelet Volume 7.8 fl (7.4-10.4); Monocytes # 0.5 K/mm3 (0.1-1.0); Monocytes % 2.7 % (1.7-9.3); Neutrophils # 16.7 K/mm3 (1.8-7.8); Neutrophils % 92.6 % (37.0-80.0); Platelet Count 259 K/mm3 (142-424); Red Blood Count 5.01 M/mm3 (4.20-5.40); Red Cell Distribution Width 14.8 % (11.5-17.5)
[2024-07-03 20:53] LABS: MANUAL DIFFERENTIAL MANUAL DIFFERENTIAL (MANUAL DIFF)
[2024-07-03 21:00] LABS: Magnesium 1.8 mg/dl (1.6-2.3)
[2024-07-03 21:04] LABS: Alanine Aminotransferase 27 U/L (12-78); Albumin Level 4.3 g/dl (3.5-5.0); Albumin/Globulin Ratio 1.2 (1.1-1.8); Alkaline Phosphatase 90 U/L (38-126); Aspartate Amino Transferase 29 U/L (14-36); Bilirubin,Total 0.7 mg/dl (0.2-1.3); Blood Urea Nitrogen 15 mg/dl (7-17); Calcium 9.3 mg/dl (8.4-10.2); Carbon Dioxide 33 mmol/L (22.0-30.0); Chloride 103 mmol/L (98-107); Creatinine Clearance Estimated 128 mL/min (50-200); Estimated Glomerular Filt Rate 74 ml/min (>60); GFR (African American) 89 ML/MIN (>60); Globulin 3.5 g/dL (1.3-3.2); Glucose 109 mg/dl (74-100); Sodium 141 mmol/L (136-145); Total Protein,Serum 7.8 g/dl (6.3-8.2)
[2024-07-03 21:30] LABS: HIV (1&2) Antibody Rapid NONREACTIVE (NONREACTIVE)
[2024-07-03 21:51] LABS: Lymphocytes % 4 % (10-50); Macrocytosis 1+; Monocytes % 1 % (2-9); Neutrophils % 95 % (42-76); Platelet Estimate Normal; Total Cells Counted 100
--- NOTE | 2024-07-03 21:55 | P.HP_ITS ---
<Statement entered by Luis Samson MD - 07/10/24 17:02> Attestation: I saw and evaluated the patient. I agree with the findings and plan of care as documented in the [facility]?s note. History of Present Illness *Admission Date: 07/03/24 *Reason for visit:: SOB *History of present illness: This is a 59yo obese female, current smoker with PMHx of COPD, hypothyroidism, sleep apnea presented to ED for evaluation of shortness of breath. Patient has had increasing shortness of breath since Monday. She went to an urgent care where she was given steroids onsite and a prescription for doxycycline however they did no lab work but no chest x-ray. At baseline patient does not wear oxygen but during the COVID pandemic she actually required oxygen for quite some time but has since been off. Patient has been wearing oxygen since Monday 4 L/min. She states that she feels no better after those interventions and presents today for evaluation. She denies chest pain fever chills hemoptysis hematochezia melena nausea vomiting diarrhea. admitted for further monitoring and treatment. [facility] Disclaimer: The information contained in this section may have been updated after the patient was seen, as this information can be updated by other users. Medical History (Updated 07/04/24 @ 03:09 by Deon Cho APRN) COPD (chronic obstructive pulmonary disease) Anxiety History of hypothyroidism Surgical History Status post left breast lumpectomy History of tubal ligation Family History Sister Cancer Mother Coronary artery disease Family history of hypertension Brother Diabetes Social History Smoking Status: Light tobacco smoker alcohol intake: never substance use type: denies use current occupational status: other Travel in the last 8 weeks: None Review of Systems Review of Systems Review of systems:: pertinent systems reviewed and negative unless documented below Meds Home Medications and Allergies Home Medications ?Medication ?Instructions ?Recorded ?Confirmed ?Type sertraline 50 mg tablet 75 mg PO DAILY 30 days #30 tabs 10/04/18 07/04/24 History fluticasone fur. 100 mcg-umeclid 1 inh inhalation DAILY 04/26/24 07/04/24 History 62.5 mcg-vilant 25 mcg inhalat.powder (Trelegy Ellipta) levothyroxine 75 mcg tablet 75 mcg PO DAILY 04/26/24 07/04/24 History roflumilast 500 mcg tablet 500 mcg PO DAILY 04/26/24 07/04/24 History (Daliresp) New Prescriptions to Start Prescriptions: Allergies Allergy/AdvReac Type Severity Reaction Status Date / Time No Known Allergies Allergy Verified 12/18/23 15:46 Exam Data for Last 24 hours Vital signs and Labs for Last 24 Hours: Temp Pulse Resp BP Pulse Ox O2 Del Method O2 Flow Rate 99.9 F H 101 H 20 143/85 H 98 Nasal Cannula 3 07/03/24 19:54 07/03/24 21:30 07/03/24 20:47 07/03/24 21:30 07/03/24 21:30 07/03/24 20:47 07/03/24 20:47 Laboratory Results - last 24 hr 07/03/24 20:06: VBG pH 7.31, VBG pCO2 59.2 H, VBG pO2 31.0, VBG HCO3 29.0, VBG Total CO2 30.8 H, VBG O2 Saturation 59.7, VBG Base Excess 2.7 H, VBG Lactic Acid 1.0 07/03/24 20:28: WBC 18.0 H, RBC 5.01, Hgb 15.3, Hct 50.1 H, MCV 100.1 H, MCH 30.6, MCHC 30.5 L, RDW 14.8, Plt Count 259, MPV 7.8, Neut % (Auto) 92.6 H, Lymph % (Auto) 3.6 L, [place] % (Auto) 2.7, Eos % (Auto) 0.5, Baso % (Auto) 0.7, Neut # (Auto) 16.7 H, Lymph # (Auto) 0.6 L, [place] # (Auto) 0.5, Eos # (Auto) 0.1, Baso # (Auto) 0.1, Total Counted 100, Neutrophils % (Manual) 95 H, Lymphocytes % (Manual) 4 L, Monocytes % (Manual) 1 L, Platelet Estimate Normal, Macrocytosis 1+, Sodium 141, Potassium 4.0, Chloride 103, Carbon Dioxide 33 H, Anion Gap 9.0, BUN 15, Creatinine 0.80, Estimated Creat Clear 128, Estimated GFR 74, Est GFR ( Amer) 89, Glucose 109 H, Calcium 9.3, Magnesium 1.8, Total Bilirubin 0.7, AST 29, ALT 27, Alkaline Phosphatase 90, Total Protein 7.8, Albumin 4.3, Globulin 3.5 H, Albumin/Globulin Ratio 1.2, HIV 1&2 Antibody Rapid Nonreactive I & O for Last 24 hours: Intake & Output 06/30/24 07/01/24 07/02/24 07/03/24 23:59 23:59 23:59 23:59 Weight 104.326 kg Constitutional Constitutional: mild distress and obese *Routine HEENT Exam Head: Present normocephalic Eye: Present EOMI and PERRL ENT: Present mucous membranes moist *Routine Neck Exam Neck: Present supple; Absent lymphadenopathy *Routine Respiratory Exam Respiratory: Present CTA bilaterally, prolonged expiratory phase, wheezes and diminished air movement; Absent respiratory distress *Routine Cardiovascular Exam Cardiovascular: Present RRR, Normal S1, Normal S2 and tachycardia *Routine Abdominal Exam Abdominal: Present soft, normoactive bowel sounds and obese; Absent tenderness *Routine Rectal Exam Rectal:: deferred *Routine Genitalia Exam Genitalia:: deferred *Routine Extremities Exam Extremities: Absent cyanosis, clubbing or edema *Routine Skin Exam Skin: Present warm; Absent rash *Routine Neurological Exam Neurological: Present alert and oriented X3 H&P: Result Imaging and Cardiology EKG: Status: image reviewed by me, Preliminary report and final report Chest x-ray: Status: image reviewed by me, Preliminary report and final report Assessment and Plan *Assessment and plan (1) Acute and chronic respiratory failure with hypoxia: Status: Acute Category: Medical Code(s): J96.21 - Acute and chronic respiratory failure with hypoxia (2) Acute exacerbation of chronic obstructive pulmonary disease: Status: Acute Category: Medical Code(s): J44.1 - Chronic obstructive pulmonary disease with (acute) exacerbation (3) Rhinovirus infection: Status: Acute Category: Medical Code(s): B34.8 - Other viral infections of unspecified site (4) History of hypothyroidism: Status: Acute Category: Medical Code(s): Z86.39 - Personal history of other endocrine, nutritional and metabolic disease (5) Anxiety: Status: Acute Category: Medical Code(s): F41.9 - Anxiety disorder, unspecified (6) Current smoker: Status: Acute Category: Social Hx Code(s): F17.200 - Nicotine dependence, unspecified, uncomplicated Plan 59yo obese female, current smoker with PMHx of COPD, hypothyroidism, sleep apnea presented to ED for evaluation of shortness of breath.Patient is hemodynamically stable upon arrival, afebrile. satting 92% on 4 L per nasal cannula. Initial ED workup reviewed by me shows WBC of 18,000 with neutrophilic shift however patient has been on steroids. chest x-ray shows chronic COPD changes with no definitive infiltrate. Discussed with ED. agreed for inpatient managment. Plan as follow: Acute on chronic respiratory failure with hypoxia Secondary to acute exacerbation of COPD secondary to rhinovirus infection: Admit patient for medical services. Dispo MedSurg Monitor O2 saturation on continuous 4 L nasal cannula and weaning off DuoNeb every 6h Sputum pending Started on Levaquin 750mg IV daily for COPD exacerbation empirically Monitor CBC CMP. Watch for WBC Vital signs per unit CPAP for sleep apnea as needed overnight Resume home/inhaler regimen Will need 6-minute walk test in the morning -History of hypothyroidism Resume home Synthroid Anxiety and depression On sertraline Current smoker: On nicotine patch. Education provided smoking cessation Lovenox for DVT prophylaxis. On Protonix for GI bleed protection Full code Regular diet
[2024-07-03] MEDS: IPRATROPIUM/ALBUTEROL 3 ML NEB IH (23:10)
[2024-07-04] VITALS (11 sets, daily range): BP systolic 133–151; BP diastolic 65–81; PULSE 72–96; RESP 16–18; TEMP 36.6–37.3; O2SAT 5–98; BMI 34.8
--- NOTE | 2024-07-04 00:59 | PC.NURSE ---
2100 Had patient ambulate in the cash on room air. O2 sats decreased to 78%, Provider aware, Pt. recovered on 3 L NC oxygen . O2 sat 94%.
--- NOTE | 2024-07-04 01:01 | PC.NURSE ---
Patient arrived to floor via wheelchair from ED at 22:14.
[2024-07-04] MEDS: ACETAMINOPHEN 325MG TAB 650 MG PO ×3 (01:23→21:16)
[2024-07-04 02:02] LABS: Rhinovirus/Enterovirus Detected (NotDetected)
[2024-07-04] MEDS: LEVOFLOXACIN/D5W 750 MG/150 ML 750 MG/150 ML PIGGYBACK 100 MG IV (02:59)
[2024-07-04 05:57] LABS: Basophils % 0.1 % (0.1-2.0); Eosinophils # 0.1 K/mm3 (0.0-0.4); Eosinophils % 0.5 % (0.1-12.0); Hematocrit 44.7 % (37.0-47.0); Hemoglobin 13.8 g/dL (12.2-16.2); Lymphocytes # 0.5 K/mm3 (0.7-4.5); Lymphocytes % 3.8 % (10-50); Mean Corpuscular HGB Conc 30.8 g/dL (31.8-35.4); Mean Corpuscular Hemoglobin 30.6 pg (27.0-31.2); Mean Corpuscular Volume 99.4 fl (81-99); Mean Platelet Volume 8.1 fl (7.4-10.4); Monocytes # 0.2 K/mm3 (0.1-1.0); Monocytes % 1.5 % (1.7-9.3); Neutrophils # 12.7 K/mm3 (1.8-7.8); Neutrophils % 94.1 % (37.0-80.0); Platelet Count 232 K/mm3 (142-424); Red Cell Distribution Width 14.7 % (11.5-17.5); White Blood Count 13.5 K/mm3 (4.8-10.8)
[2024-07-04 05:58] LABS: MANUAL DIFFERENTIAL MANUAL DIFFERENTIAL (MANUAL DIFF)
[2024-07-04 06:17] LABS: Alanine Aminotransferase 27 U/L (12-78); Albumin Level 3.8 g/dl (3.5-5.0); Albumin/Globulin Ratio 1.4 (1.1-1.8); Alkaline Phosphatase 78 U/L (38-126); Anion Gap 4.5 mEq/L (5-15); Aspartate Amino Transferase 22 U/L (14-36); Bilirubin,Total 0.4 mg/dl (0.2-1.3); Blood Urea Nitrogen 15 mg/dl (7-17); Calcium 9.1 mg/dl (8.4-10.2); Carbon Dioxide 33 mmol/L (22.0-30.0); Chloride 106 mmol/L (98-107); Creatinine Clearance Estimated 128 mL/min (50-200); Estimated Glomerular Filt Rate 74 ml/min (>60); GFR (African American) 89 ML/MIN (>60); Globulin 2.8 g/dL (1.3-3.2); Glucose 142 mg/dl (74-100); Magnesium 1.9 mg/dl (1.6-2.3); Potassium 4.5 mmoL/L (3.5-5.1); Sodium 139 mmol/L (136-145); Total Protein,Serum 6.6 g/dl (6.3-8.2)
[2024-07-04] MEDS: SODIUM CHLORIDE 3% 15ML NEB 3 ML IH (06:17)
[2024-07-04] MEDS: IPRATROPIUM/ALBUTEROL 3 ML NEB IH ×4 (06:17→23:10)
[2024-07-04] MEDS: SERTRALINE 50MG TABLET 75 MG PO (09:13)
[2024-07-04] MEDS: LEVOTHYROXINE 75MCG (0.075MG) TAB 75 MCG PO (09:14)
[2024-07-04 09:35] LABS: Lymphocytes % 4 % (10-50); Neutrophils % 96 % (42-76); Total Cells Counted 100
[2024-07-04 09:36] LABS: Platelet Estimate Normal; RBC Morphology Normal
--- NOTE | 2024-07-04 09:38 | HMH.PHAINT1 ---
Pharmacy Intervention Comments: home medication list verified using list from outpatient pharmacy
[2024-07-04] MEDS: FLUTICASONE/UMECLIDIN/VILANTER 100/62.5/25MCG INHALER 1 PUFF IH (11:15)
[2024-07-04] MEDS: predniSONE 20MG TAB 40 MG PO (14:33)
--- NOTE | 2024-07-04 17:45 | EXP.PN ---
Subjective *Date: 07/04/24 *Time: 18:01 Interval history: Patient was sitting in bed comfortably without acute distress. She continues to require 3 L via nasal cannula, but has been having desaturations during ambulation. No respiratory distress at this time. Denies chest pain. Exam Data for Last 24 hours Vital signs and Labs for Last 24 Hours: Temp Pulse Resp BP Pulse Ox O2 Del Method O2 Flow Rate 98.0 F 72 18 138/65 98 Nasal Cannula 5 07/04/24 16:00 07/04/24 16:00 07/04/24 16:00 07/04/24 16:00 07/04/24 16:00 07/04/24 17:00 07/04/24 17:00 Laboratory Results - last 24 hr 07/03/24 20:06: VBG pH 7.31, VBG pCO2 59.2 H, VBG pO2 31.0, VBG HCO3 29.0, VBG Total CO2 30.8 H, VBG O2 Saturation 59.7, VBG Base Excess 2.7 H, VBG Lactic Acid 1.0 07/03/24 20:28: WBC 18.0 H, RBC 5.01, Hgb 15.3, Hct 50.1 H, MCV 100.1 H, MCH 30.6, MCHC 30.5 L, RDW 14.8, Plt Count 259, MPV 7.8, Neut % (Auto) 92.6 H, Lymph % (Auto) 3.6 L, [place] % (Auto) 2.7, Eos % (Auto) 0.5, Baso % (Auto) 0.7, Neut # (Auto) 16.7 H, Lymph # (Auto) 0.6 L, [place] # (Auto) 0.5, Eos # (Auto) 0.1, Baso # (Auto) 0.1, Total Counted 100, Neutrophils % (Manual) 95 H, Lymphocytes % (Manual) 4 L, Monocytes % (Manual) 1 L, Platelet Estimate Normal, Macrocytosis 1+, Sodium 141, Potassium 4.0, Chloride 103, Carbon Dioxide 33 H, Anion Gap 9.0, BUN 15, Creatinine 0.80, Estimated Creat Clear 128, Estimated GFR 74, Est GFR ( Amer) 89, Glucose 109 H, Calcium 9.3, Magnesium 1.8, Total Bilirubin 0.7, AST 29, ALT 27, Alkaline Phosphatase 90, Total Protein 7.8, Albumin 4.3, Globulin 3.5 H, Albumin/Globulin Ratio 1.2, HIV 1&2 Antibody Rapid Nonreactive 07/03/24 20:43: Chlamy pneumoniae PCR Not detected, Adenovirus (PCR) Not detected, B. pertussis DNA (PCR) Not detected, Coronavirus OC43 (PCR) Not detected, Coronavirus HKU1 (PCR) Not detected, Coronavirus 229E (PCR) Not detected, SARS-CoV-2 (PCR) Not detected, Coronavirus NL63 (PCR) Not detected, Human Metapneumovir PCR Not detected, Influenza A (H1) PCR Not detected, Influ A (H1N1/) PCR Not detected, Influenza A (H3) PCR Not detected, Influenza Type A (PCR) Not detected, Influenza Type B (PCR) Not detected, M. pneumoniae (PCR) Not detected, Parainfluenza 1 (PCR) Not detected, Parainfluenza 2 (PCR) Not detected, Parainfluenza 3 (PCR) Not detected, Parainfluenza 4 (PCR) Not detected, RSV (PCR) Not detected, Entero/Rhino (PCR) Detected A 07/04/24 05:19: WBC 13.5 H, RBC 4.50, Hgb 13.8, Hct 44.7, MCV 99.4 H, MCH 30.6, MCHC 30.8 L, RDW 14.7, Plt Count 232, MPV 8.1, Neut % (Auto) 94.1 H, Lymph % (Auto) 3.8 L, [place] % (Auto) 1.5 L, Eos % (Auto) 0.5, Baso % (Auto) 0.1, Neut # (Auto) 12.7 H, Lymph # (Auto) 0.5 L, [place] # (Auto) 0.2, Eos # (Auto) 0.1, Baso # (Auto) 0.0, Total Counted 100, Neutrophils % (Manual) 96 H, Lymphocytes % (Manual) 4 L, Platelet Estimate Normal, RBC Morphology Normal, Sodium 139, Potassium 4.5, Chloride 106, Carbon Dioxide 33 H, Anion Gap 4.5 L, BUN 15, Creatinine 0.80, Estimated Creat Clear 128, Estimated GFR 74, Est GFR ( Amer) 89, Glucose 142 H D, Calcium 9.1, Magnesium 1.9, Total Bilirubin 0.4, AST 22, ALT 27, Alkaline Phosphatase 78, Total Protein 6.6, Albumin 3.8 D, Globulin 2.8, Albumin/Globulin Ratio 1.4 I & O for Last 24 hours: Intake & Output 07/01/24 07/02/24 07/03/24 07/04/24 23:59 23:59 23:59 23:59 Intake Total 1140 / 1140 Output Total 0 / 0 Balance 1140 / 1140 Weight 104.326 kg 104.326 kg Microbiology Reports for the Last 24 Hours: Microbiology 07/04/24 07:21 Sputum - Expectorated Sputum Gram Stain - Final Constitutional Constitutional: no acute distress *Routine HEENT Exam Head: Present normocephalic Eye: Present EOMI and PERRL ENT: Present mucous membranes moist *Routine Neck Exam Neck: Present supple; Absent lymphadenopathy *Routine Respiratory Exam Respiratory: Present wheezes and diminished air movement; Absent accessory muscle use or CTA bilaterally Comments: Moderate wheezing in bilateral lung gale[place]. *Routine Cardiovascular Exam Cardiovascular: Present RRR *Routine Abdominal Exam Abdominal: Present soft and normoactive bowel sounds; Absent tenderness *Routine Extremities Exam Extremities: Absent cyanosis, clubbing or edema *Routine Skin Exam Skin: Present warm; Absent rash *Routine Neurological Exam Neurological: Present alert and oriented X3 Assessment and Plan *Assessment and plan (1) Current smoker: Status: Acute Category: Social Hx Code(s): F17.200 - Nicotine dependence, unspecified, uncomplicated (2) Rhinovirus infection: Status: Acute Category: Medical Code(s): B34.8 - Other viral infections of unspecified site (3) History of hypothyroidism: Status: Acute Category: Medical Code(s): Z86.39 - Personal history of other endocrine, nutritional and metabolic disease (4) Acute and chronic respiratory failure with hypoxia: Status: Acute Category: Medical Code(s): J96.21 - Acute and chronic respiratory failure with hypoxia (5) Acute exacerbation of chronic obstructive pulmonary disease: Status: Acute Category: Medical Code(s): J44.1 - Chronic obstructive pulmonary disease with (acute) exacerbation (6) Anxiety: Status: Acute Category: Medical Code(s): F41.9 - Anxiety disorder, unspecified Plan Milana Christian is a 59yo obese female, current smoker with PMHx of COPD, hypothyroidism, sleep apnea presented to ED for evaluation of shortness of breath. Patient is hemodynamically stable upon arrival, afebrile. satting 92% on 4 L per nasal cannula. Initial ED workup reviewed by me shows WBC of 18,000 with neutrophilic shift however patient has been on steroids. chest x-ray shows chronic COPD changes with no definitive infiltrate. Discussed with ED. agreed for inpatient managment. Plan as follow: #Acute on chronic hypoxic, hypercapnic respiratory failure #Acute COPD exacerbation #Suspected community-acquired pneumonia ? Patient continues to require 3 L via nasal cannula, desaturates with ambulation and requires 5 L. At baseline patient does not use O2 consistently. ? CXR did not reveal acute findings. VBG revealed borderline respiratory acidosis with hypercapnia on admission. ? Patient states she feels better today. ? WBC improved from 18-13.5 today. ? DuoNebs scheduled and as needed. ? Prednisone/steroids day 2/5. ? Patient does report yellow sputum, continue Levaquin. ? Continue Trelegy 100. ? Follow-up respiratory cultures. ? Anticipate walk test and possible discharge with oxygen tomorrow. -History of hypothyroidism Resume home Synthroid Anxiety and depression On sertraline Current smoker: On nicotine patch. Education provided smoking cessation Lovenox for DVT prophylaxis. Full code Regular diet
--- NOTE | 2024-07-04 18:48 | PC.NURSE ---
pt is resting comfortably in bed at this time. pt is on CPAP at the moment while resting. has been on 5l nc intermittently. pt was treated with tylenol this shift for headache. wheezes noted throughout. VSS. pt has no complaints at this time. call light within reach.
[2024-07-04] MEDS: PANTOPRAZOLE 40MG TABLET 40 MG PO (20:22)
[2024-07-05] VITALS (7 sets, daily range): BP systolic 128–139; BP diastolic 62–85; PULSE 74–89; RESP 16–18; TEMP 36.8–37.2; O2SAT 91–96; BMI 34.8; BMI 34.7
[2024-07-05] MEDS: LEVOFLOXACIN/D5W 750 MG/150 ML 750 MG/150 ML PIGGYBACK 100 MG IV (02:24)
--- NOTE | 2024-07-05 04:30 | PC.NURSE ---
59 yo female pt has remained A/O X 4. At change of shift, pt was reported to be on 02 at 5 liters. During assessment, pt continued to report feeling SOA and did not want to decrease 02 liter flow. Pt changed to use of CPAP when sleeping. Pt with expiratory wheezing throughout but denies coughing much. Antibiotics administered per DEC. Pt able to ambulate to without assist.
[2024-07-05 05:13] LABS: HCV Ab Non Reactive (Non Reactive)
[2024-07-05] MEDS: LEVOTHYROXINE 75MCG (0.075MG) TAB 75 MCG PO (06:25)
[2024-07-05] MEDS: FLUTICASONE/UMECLIDIN/VILANTER 100/62.5/25MCG INHALER 1 PUFF IH (06:31)
[2024-07-05] MEDS: IPRATROPIUM/ALBUTEROL 3 ML NEB IH ×3 (06:32→18:27)
[2024-07-05 07:04] LABS: Basophils # 0.1 K/mm3 (0-0.2); Basophils % 0.6 % (0.1-2.0); Eosinophils % 0.2 % (0.1-12.0); Hematocrit 48.3 % (37.0-47.0); Hemoglobin 14.5 g/dL (12.2-16.2); Lymphocytes # 1.9 K/mm3 (0.7-4.5); Lymphocytes % 14.2 % (10-50); Mean Corpuscular Hemoglobin 29.9 pg (27.0-31.2); Mean Corpuscular Volume 99.7 fl (81-99); Monocytes # 0.7 K/mm3 (0.1-1.0); Monocytes % 5.5 % (1.7-9.3); Neutrophils # 10.4 K/mm3 (1.8-7.8); Neutrophils % 79.5 % (37.0-80.0); Platelet Count 247 K/mm3 (142-424); Red Blood Count 4.84 M/mm3 (4.20-5.40); Red Cell Distribution Width 14.3 % (11.5-17.5); White Blood Count 13.1 K/mm3 (4.8-10.8)
[2024-07-05 07:12] LABS: Alanine Aminotransferase 22 U/L (12-78); Albumin Level 3.8 g/dl (3.5-5.0); Albumin/Globulin Ratio 1.2 (1.1-1.8); Alkaline Phosphatase 84 U/L (38-126); Anion Gap 4.4 mEq/L (5-15); Aspartate Amino Transferase 25 U/L (14-36); Bilirubin,Total 0.5 mg/dl (0.2-1.3); Blood Urea Nitrogen 17 mg/dl (7-17); Calcium 9.1 mg/dl (8.4-10.2); Carbon Dioxide 40 mmol/L (22.0-30.0); Chloride 100 mmol/L (98-107); Creatinine Clearance Estimated 102 mL/min (50-200); Estimated Glomerular Filt Rate 57 ml/min (>60); GFR (African American) 69 ML/MIN (>60); Globulin 3.1 g/dL (1.3-3.2); Glucose 82 mg/dl (74-100); Magnesium 2.1 mg/dl (1.6-2.3); Potassium 4.4 mmoL/L (3.5-5.1); Sodium 140 mmol/L (136-145); Total Protein,Serum 6.9 g/dl (6.3-8.2)
[2024-07-05] MEDS: predniSONE 20MG TAB 40 MG PO (08:40)
[2024-07-05] MEDS: SERTRALINE 50MG TABLET 75 MG PO (08:40)
--- NOTE | 2024-07-05 10:14 | PC.NURSE ---
pt room air o2 sat at rest was 86%
--- NOTE | 2024-07-05 10:15 | PC.NURSE ---
pt walk test performed. pt started test on 3L nc. pt o2 sat at beginning of test was 92%. pt ambulated to end of hallway and back and o2 sat dropped to 80%. pt walked back to room and 4L o2 via nc applied. pt c/o sob throughout test. pt now sitting on side of bed.
--- NOTE | 2024-07-05 15:21 | P.PN_ITS ---
Subjective *Date: 07/05/24 *Time: 15:29 Interval history: Patient was sitting in chair looking out into the radha this morning without acute concerns or distress. She continues to require 4 L via nasal cannula. Continues to have exertional dyspnea with desaturation. Denies chest pain, a bdominal pain, lower extremity swelling. Exam Data for Last 24 hours Vital signs and Labs for Last 24 Hours: Temp Pulse Resp BP Pulse Ox O2 Del Method O2 Flow Rate 99.0 F 80 16 139/72 91 L Nasal Cannula 4 07/05/24 08:00 07/05/24 13:20 07/05/24 08:00 07/05/24 08:00 07/05/24 13:20 07/05/24 15:00 07/05/24 15:00 FiO2 36 07/04/24 18:28 Laboratory Results - last 24 hr 07/03/24 20:28: Hepatitis C Antibody Non reactive, Hep C Ab Comment Comment 07/05/24 06:06: WBC 13.1 H, RBC 4.84, Hgb 14.5, Hct 48.3 H, MCV 99.7 H, MCH 29.9, MCHC 30.0 L, RDW 14.3, Plt Count 247, MPV 7.0 L, Neut % (Auto) 79.5, Lymph % (Auto) 14.2, [place] % (Auto) 5.5, Eos % (Auto) 0.2, Baso % (Auto) 0.6, Neut # (Auto) 10.4 H, Lymph # (Auto) 1.9, [place] # (Auto) 0.7, Eos # (Auto) 0.0, Baso # (Auto) 0.1, Sodium 140, Potassium 4.4, Chloride 100, Carbon Dioxide 40 H, Anion Gap 4.4 L, BUN 17, Creatinine 1.00 D, Estimated Creat Clear 102, Estimated GFR 57 L, Est GFR ( Amer) 69 D, Glucose 82, Calcium 9.1, Magnesium 2.1 D, Total Bilirubin 0.5, AST 25, ALT 22, Alkaline Phosphatase 84, Total Protein 6.9, Albumin 3.8, Globulin 3.1, Albumin/Globulin Ratio 1.2 I & O for Last 24 hours: Intake & Output 07/02/24 07/03/24 07/04/24 07/05/24 23:59 23:59 23:59 23:59 Intake Total 1140 / 1140 860 / 860 Output Total 0 / 0 0 / 0 Balance 1140 / 1140 860 / 860 Weight 104.326 kg 104.326 kg 104.326 kg Microbiology Reports for the Last 24 Hours: Microbiology 07/04/24 07:21 Sputum - Expectorated Sputum Gram Stain - Final Constitutional Constitutional: no acute distress *Routine HEENT Exam Head: Present normocephalic Eye: Present EOMI and PERRL ENT: Present mucous membranes moist *Routine Neck Exam Neck: Present supple; Absent lymphadenopathy *Routine Respiratory Exam Respiratory: Present wheezes and diminished air movement; Absent accessory muscle use or CTA bilaterally Comments: Moderate wheezing in bilateral lung galeas. *Routine Cardiovascular Exam Cardiovascular: Present RRR *Routine Abdominal Exam Abdominal: Present soft and normoactive bowel sounds; Absent tenderness *Routine Extremities Exam Extremities: Absent cyanosis, clubbing or edema *Routine Skin Exam Skin: Present warm; Absent rash *Routine Neurological Exam Neurological: Present alert and oriented X3 Assessment and Plan *Assessment and plan (1) Current smoker: Status: Acute Category: Social Hx Code(s): F17.200 - Nicotine dependence, unspecified, uncomplicated (2) Rhinovirus infection: Status: Acute Category: Medical Code(s): B34.8 - Other viral infections of unspecified site (3) History of hypothyroidism: Status: Acute Category: Medical Code(s): Z86.39 - Personal history of other endocrine, nutritional and metabolic disease (4) Acute and chronic respiratory failure with hypoxia: Status: Acute Category: Medical Code(s): J96.21 - Acute and chronic respiratory failure with hypoxia (5) Acute exacerbation of chronic obstructive pulmonary disease: Status: Acute Category: Medical Code(s): J44.1 - Chronic obstructive pulmonary disease with (acute) exacerbation (6) Anxiety: Status: Acute Category: Medical Code(s): F41.9 - Anxiety disorder, unspecified Plan Milana Christian is a 59yo obese female, current smoker with PMHx of COPD, hypothyroidism, sleep apnea presented to ED for evaluation of shortness of breath. Patient is hemodynamically stable upon arrival, afebrile. satting 92% on 4 L per nasal cannula. Initial ED workup reviewed by me shows WBC of 18,000 with neutrophilic shift however patient has been on steroids. chest x-ray shows chronic COPD changes with no definitive infiltrate. Discussed with ED. agreed for inpatient managment. Plan as follow: #Acute on chronic hypoxic, hypercapnic respiratory failure #Acute COPD exacerbation #Suspected community-acquired pneumonia ? CXR did not reveal acute findings. VBG revealed borderline respiratory acidosis with hypercapnia on admission. ? Patient states she feels better today but patient continues to require 4 L via nasal cannula, desaturated to 80% on walk test today. Continues to have dyspnea on exertion. She states she has a 5 L oxygen tank at home but does not use it, but does use her CPAP at night. ? Leukocytosis improving 13.1. ? DuoNebs scheduled and as needed. ? Prednisone/steroids day 3/5. ? Patient does report yellow sputum, continue Levaquin. ? Continue Trelegy 100. ? Follow-up respiratory cultures. ? Anticipate walk test and possible discharge with oxygen tomorrow. #Sleep apnea ? Continue CPAP nightly. -History of hypothyroidism Resume home Synthroid Anxiety and depression On sertraline Current smoker: On nicotine patch. Education provided smoking cessation Lovenox for DVT prophylaxis. Full code Regular diet
[2024-07-05] MEDS: ACETAMINOPHEN 325MG TAB 650 MG PO (15:52)
--- NOTE | 2024-07-05 17:59 | PC.NURSE ---
pt was on 3l nc at the beginning od my shift, however after pt performed walk test, pt o2 sat dropped to 80%, so 4l nc was applied. pt has remained on 4l remainder of the shift. pt voiced concerns about going home to this RN and to the hospitalist. hospitalist made pt aware that he felt uncomfortable sending pt home considering o2 level during walk test. pt does have o2 at home, however states she does not wear it all the time. new IV was placed in lac today d/t pt displacing it. pt has been ambulating in room and to and from bathroom w/o assistance. pt is currently resting in chair. no new orders at this time. hospitalist wants to repeat walk test tomorrow w/ possible 5L nc instead of 3L.
[2024-07-05] MEDS: PANTOPRAZOLE 40MG TABLET 40 MG PO (20:48)
--- NOTE | 2024-07-05 20:50 | PC.NURSE ---
Pt refused scheduled Trazodone and stated that she doesn't need anything for sleep.
[2024-07-06] MEDS: LEVOFLOXACIN/D5W 750 MG/150 ML 750 MG/150 ML PIGGYBACK 100 MG IV (02:00)
--- NOTE | 2024-07-06 03:52 | PC.NURSE ---
Pt is alert and oriented x4 and currently tolerating 4L well at rest. Pt sats continue to decrease with activity such as toileting. Pt states that she cannot sleep in her bed as it is extremely uncomfortable and wishes to sleep in recliner. Pt has tolerated antibiotic therapy well. Pt has had no other acute changes to note this shift, denies pain and needs.
[2024-07-06 04:00] VITALS: BP 147/75; PULSE 75; RESP 18; TEMP 36.7; O2SAT 95; BMI 34.7
[2024-07-06] MEDS: IPRATROPIUM/ALBUTEROL 3 ML NEB IH ×2 (06:12→11:19)
[2024-07-06] MEDS: FLUTICASONE/UMECLIDIN/VILANTER 100/62.5/25MCG INHALER 1 PUFF IH (06:13)
[2024-07-06 06:14] VITALS: PULSE 90; PULSE 92; O2SAT 97
[2024-07-06 07:29] LABS: Basophils % 0.4 % (0.1-2.0); Eosinophils # 0.1 K/mm3 (0.0-0.4); Eosinophils % 0.5 % (0.1-12.0); Hematocrit 48.7 % (37.0-47.0); Hemoglobin 14.9 g/dL (12.2-16.2); Lymphocytes % 18.9 % (10-50); Mean Corpuscular HGB Conc 30.5 g/dL (31.8-35.4); Mean Corpuscular Hemoglobin 30.3 pg (27.0-31.2); Mean Corpuscular Volume 99.3 fl (81-99); Monocytes # 0.5 K/mm3 (0.1-1.0); Neutrophils # 8.1 K/mm3 (1.8-7.8); Neutrophils % 75.1 % (37.0-80.0); Platelet Count 221 K/mm3 (142-424); Red Blood Count 4.91 M/mm3 (4.20-5.40); Red Cell Distribution Width 14.3 % (11.5-17.5); White Blood Count 10.7 K/mm3 (4.8-10.8)
[2024-07-06 07:35] LABS: Chloride 97 mmol/L (98-107)
[2024-07-06 07:36] LABS: Albumin Level 4.2 g/dl (3.5-5.0); Potassium 3.8 mmoL/L (3.5-5.1); Sodium 139 mmol/L (136-145)
[2024-07-06 07:38] LABS: Blood Urea Nitrogen 17 mg/dl (7-17); Creatinine Clearance Estimated 102 mL/min (50-200); Estimated Glomerular Filt Rate 57 ml/min (>60); GFR (African American) 69 ML/MIN (>60)
[2024-07-06 07:39] LABS: Alanine Aminotransferase 22 U/L (12-78); Albumin/Globulin Ratio 1.6 (1.1-1.8); Alkaline Phosphatase 95 U/L (38-126); Aspartate Amino Transferase 24 U/L (14-36); Bilirubin,Total 0.8 mg/dl (0.2-1.3); Calcium 9.4 mg/dl (8.4-10.2); Globulin 2.7 g/dL (1.3-3.2); Glucose 89 mg/dl (74-100); Total Protein,Serum 6.9 g/dl (6.3-8.2)
[2024-07-06 07:46] LABS: Anion Gap 9.8 mEq/L (5-15); Carbon Dioxide 36 mmol/L (22.0-30.0)
[2024-07-06 08:00] VITALS: BP 138/83; PULSE 100; RESP 18; TEMP 37.3; O2SAT 94
[2024-07-06] MEDS: LEVOTHYROXINE 75MCG (0.075MG) TAB 75 MCG PO (09:01)
[2024-07-06] MEDS: predniSONE 20MG TAB 40 MG PO (09:01)
[2024-07-06] MEDS: SERTRALINE 50MG TABLET 75 MG PO (09:02)
[2024-07-06 11:20] VITALS: PULSE 101; PULSE 97; O2SAT 91
--- NOTE | 2024-07-06 11:52 | PC.NURSE ---
walk test performed. pt started test on 4L nc and was satting 93%. pt ambulated to end of hallway and dropped to 85%. pt o2 level was adjusted to 6L and o2 sat quickly returned to 90%. pt was then adjusted back down to 4L nc and remained 90% from opposite end of hallway to pt room.
--- NOTE | 2024-07-06 13:35 | EXP.DC.SUM ---
General Admission date:: 07/03/24 HPI HPI HPI: This is a 59yo obese female, current smoker with PMHx of COPD, hypothyroidism, sleep apnea presented to ED for evaluation of shortness of breath. Patient has had increasing shortness of breath since Monday. She went to an urgent care where she was given steroids onsite and a prescription for doxycycline however they did no lab work but no chest x-ray. At baseline patient does not wear oxygen but during the COVID pandemic she actually required oxygen for quite some time but has since been off. Patient has been wearing oxygen since Monday 4 L/min. She states that she feels no better after those interventions and presents today for evaluation. She denies chest pain fever chills hemoptysis hematochezia melena nausea vomiting diarrhea. admitted for further monitoring and treatment. Hospital Course Hospital Course Hospital Course: Milana Christian is a 59yo obese female, current smoker with PMHx of COPD, hypothyroidism, sleep apnea presented to ED for evaluation of shortness of breath. Patient is hemodynamically stable upon arrival, afebrile. satting 92% on 4 L per nasal cannula. Initial ED workup reviewed by me shows WBC of 18,000 with neutrophilic shift however patient has been on steroids. chest x-ray shows chronic COPD changes with no definitive infiltrate. Discussed with ED. agreed for inpatient managment. Plan as follow: #Acute on chronic hypoxic, hypercapnic respiratory failure #Acute COPD exacerbation #Suspected community-acquired pneumonia ? CXR did not reveal acute findings. VBG revealed borderline respiratory acidosis with hypercapnia on admission. - Improved with breathing treatments, steroids, antibiotics. However, continues to require 3L via nasal cannula. Patient already has home O2 which she uses PRN, and plan to use continuously 3L until her AECOPD resolves. - Walk test had appropriate saturations on 3L nasal cannula. ? Continue Trelegy 100. - Prescribed prednisone, cefdinir to finish course. - Will follow-up with PCP within 1 week. #Sleep apnea ? Continue CPAP nightly. Exam Data for Last 24 hours Vital signs and Labs for Last 24 Hours: Temp Pulse Resp BP Pulse Ox O2 Del Method O2 Flow Rate 99.1 F 101 H 18 138/83 91 L Nasal Cannula 4 07/06/24 08:00 07/06/24 11:20 07/06/24 08:00 07/06/24 08:00 07/06/24 11:20 07/06/24 12:36 07/06/24 12:36 FiO2 36 07/04/24 18:28 Laboratory Results - last 24 hr 07/06/24 06:50: WBC 10.7, RBC 4.91, Hgb 14.9, Hct 48.7 H, MCV 99.3 H, MCH 30.3, MCHC 30.5 L, RDW 14.3, Plt Count 221, MPV 7.0 L, Neut % (Auto) 75.1, Lymph % (Auto) 18.9, [place] % (Auto) 5.0, Eos % (Auto) 0.5, Baso % (Auto) 0.4, Neut # (Auto) 8.1 H, Lymph # (Auto) 2.0, [place] # (Auto) 0.5, Eos # (Auto) 0.1, Baso # (Auto) 0.0, Sodium 139, Potassium 3.8, Chloride 97 L, Carbon Dioxide 36 H, Anion Gap 9.8, BUN 17, Creatinine 1.00, Estimated Creat Clear 102, Estimated GFR 57 L, Est GFR ( Amer) 69, Glucose 89, Calcium 9.4, Total Bilirubin 0.8, AST 24, ALT 22, Alkaline Phosphatase 95, Total Protein 6.9, Albumin 4.2 D, Globulin 2.7, Albumin/Globulin Ratio 1.6 I & O for Last 24 hours: Intake & Output 07/03/24 07/04/24 07/05/24 07/06/24 23:59 23:59 23:59 23:59 Intake Total 1140 / 1140 1080 / 1440 630 / 630 Output Total 0 / 0 0 / 0 0 / 0 Balance 1140 / 1140 1080 / 1440 630 / 630 Weight 104.326 kg 104.326 kg 104 kg 104 kg Microbiology Reports for the Last 24 Hours: Microbiology 07/04/24 07:21 Sputum - Expectorated Sputum Gram Stain - Final 07/04/24 07:21 Sputum - Expectorated Sputum Sputum Culture - Preliminary Constitutional Constitutional: no acute distress *Routine HEENT Exam Head: Present normocephalic Eye: Present EOMI and PERRL ENT: Present mucous membranes moist *Routine Neck Exam Neck: Present supple; Absent lymphadenopathy *Routine Respiratory Exam Respiratory: Present wheezes and diminished air movement; Absent accessory muscle use or CTA bilaterally Comments: Mild wheezing in bilateral lung galeas. *Routine Cardiovascular Exam Cardiovascular: Present RRR *Routine Abdominal Exam Abdominal: Present soft and normoactive bowel sounds; Absent tenderness *Routine Extremities Exam Extremities: Absent cyanosis, clubbing or edema *Routine Skin Exam Skin: Present warm; Absent rash *Routine Neurological Exam Neurological: Present alert and oriented X3 Results Data Completed and Pending Labs on day of discharge: Labs from last 24 hours 07/06/24 06:50 WBC 10.7 RBC 4.91 Hgb 14.9 Hct 48.7 H MCV 99.3 H MCH 30.3 MCHC 30.5 L RDW 14.3 Plt Count 221 MPV 7.0 L Neut % (Auto) 75.1 Lymph % (Auto) 18.9 [place] % (Auto) 5.0 Eos % (Auto) 0.5 Baso % (Auto) 0.4 Neut # (Auto) 8.1 H Lymph # (Auto) 2.0 [place] # (Auto) 0.5 Eos # (Auto) 0.1 Baso # (Auto) 0.0 Sodium 139 Potassium 3.8 Chloride 97 L Carbon Dioxide 36 H Anion Gap 9.8 BUN 17 Creatinine 1.00 Estimated Creat Clear 102 Estimated GFR 57 L Est GFR ( Amer) 69 Glucose 89 Calcium 9.4 Total Bilirubin 0.8 AST 24 ALT 22 Alkaline Phosphatase 95 Total Protein 6.9 Albumin 4.2 D Globulin 2.7 Albumin/Globulin Ratio 1.6 Preliminary micro results at discharge 07/04/24 07:21 Sputum Culture - Preliminary Sputum - Expectorated Sputum DS: Diagnosis Discharge Diagnosis (1) Current smoker: Status: Acute Code(s): F17.200 - Nicotine dependence, unspecified, uncomplicated (2) Rhinovirus infection: Status: Acute Code(s): B34.8 - Other viral infections of unspecified site (3) History of hypothyroidism: Status: Acute Code(s): Z86.39 - Personal history of other endocrine, nutritional and metabolic disease (4) Acute and chronic respiratory failure with hypoxia: Status: Acute Code(s): J96.21 - Acute and chronic respiratory failure with hypoxia (5) Acute exacerbation of chronic obstructive pulmonary disease: Status: Acute Code(s): J44.1 - Chronic obstructive pulmonary disease with (acute) exacerbation (6) Anxiety: Status: Acute Code(s): F41.9 - Anxiety disorder, unspecified Meds Home Medications and Allergies Home Medications ?Medication ?Instructions ?Recorded ?Confirmed ?Type sertraline 50 mg tablet 75 mg PO DAILY 30 days #30 tabs 10/04/18 07/04/24 History fluticasone fur. 100 mcg-umeclid 1 inh inhalation DAILY 04/26/24 07/04/24 History 62.5 mcg-vilant 25 mcg inhalat.powder (Trelegy Ellipta) levothyroxine 75 mcg tablet 75 mcg PO DAILY 04/26/24 07/04/24 History roflumilast 500 mcg tablet 500 mcg PO DAILY 04/26/24 07/04/24 History (Daliresp) cefdinir 300 mg capsule 300 mg PO BID #4 caps 07/06/24 Rx prednisone 20 mg tablet 40 mg (2 x 20 mg) PO DAILY 1 day 07/06/24 Rx #2 tabs New Prescriptions to Start Prescriptions: cefdinir Luis Samson prednisone Luis Samson Allergies Allergy/AdvReac Type Severity Reaction Status Date / Time No Known Allergies Allergy Verified 12/18/23 15:46 Discharge Plan Disposition Patient Disposition: Home, Self-Care Condition: Fair Discharge Order Discharge Orders: Discharge Order (Routine); Ordered 07/06/24 Ordered By: Luis Samson Follow up Plan Prescriptions/Medication Reconciliation: New prednisone 20 mg Tablet 40 mg PO DAILY 1 Days Qty: 2 0RF cefdinir 300 mg capsule 300 mg PO BID Qty: 4 0RF Continued sertraline 50 mg tablet 75 mg PO DAILY 30 Days Qty: 30 levothyroxine 75 mcg tablet 75 mcg PO DAILY Patient Comments: TAKE 1 TABLET BY MOUTH ONCE DAILY roflumilast [Daliresp] 500 mcg Tablet 500 mcg PO DAILY Trelegy Ellipta 100-62.5-25 mcg Blister With Device 1 inh INHALATION DAILY Problem Reconciliation Problems Reviewed?: Yes Patient Discharge Instructions ACTIVITY: Continue current activity DIET: continue same diet Patient Instructions: DI for Chronic Obstructive Pulmonary Disease, DI for Shortness of Breath Print Language: Occitan Providers Primary Care Provider: Patel Robles Admit Provider: Luis Samson Attending Provider: Luis Samson
--- NOTE | 2024-07-09 13:51 | CARE MANAGER ---
Attempted to contact patient x2 related to hospital discharge. Left VM message. FERNANDA Elder
== END 2024-07-06 14:07 | disposition home or self-care (01) | DRG 189 ==
LOC: ER 20:09 → 2ND 21:58
PROVIDERS: Internal Medicine Adolescent Medicine; Nurse Practitioner Family; Physician Assistant; Admitting Provider Student in an Organized Health Care Education/Training Program; Emergency Provider Emergency Medicine; PCP Internal Medicine; Visit Provider Student in an Organized Health Care Education/Training Program
DX: J96.21 Acute and chronic respiratory failure with hypoxia (principal); J44.1 Chronic obstructive pulmonary disease with (acute) exacerbation; J96.22 Acute and chronic respiratory failure with hypercapnia; F17.200 Nicotine dependence, unspecified, uncomplicated; B34.8 Other viral infections of unspecified site; Z86.39 Personal history of other endocrine, nutritional and metabolic disease; F41.9 Anxiety disorder, unspecified; G47.30 Sleep apnea, unspecified; E03.9 Hypothyroidism, unspecified; F32.A Depression, unspecified; Z71.6 Tobacco abuse counseling; E66.9 Obesity, unspecified; Z68.34 Body mass index [BMI] 34.0-34.9, adult
CPT/HCPCS: 36415; 71046; 80053; 82803; 83735; 85007; 85025; 85027; 86803; 87070; 87205; 87265; 87389; 87486; 87581; 87632; 87635; 93005; 94640; 94660; 94761; 99285; J1650; J1956; J2919; J7620

== ENCOUNTER 2024-08-22 14:52 | Outpatient (CLI) | payer MEDICARE, SELFPAY ==
--- NOTE | 2024-08-22 14:52 | MM_ITS ---
PROCEDURE INFORMATION: Exam: MG Bilateral Screening 3D Mammography Exam date and time: 08/22/2024 2:44 PM Age: 59 years old Clinical indication: Screening examination, history of left breast benign excision. TECHNIQUE: Imaging protocol: Bilateral Screening tomosynthesis and 2D mammography including computer-aided detection (CAD) when performed. COMPARISON: No relevant prior studies available. FINDINGS: MAMMOGRAPHY: Breast composition: There are scattered areas of fibroglandular density. Mass: None. Architectural distortion: Excisional biopsy changes are noted in the left breast. Calcifications: No suspicious calcifications. Asymmetric density: None. Skin thickening: None. Axillary adenopathy: None. IMPRESSION: No mammographic evidence of malignancy. Annual screening is recommended unless otherwise clinically indicated. ASSESSMENT: BI-RADS Category 2: Benign.
== END 2024-08-22 23:59 | disposition home or self-care (01) ==
LOC: RAD 14:52
PROVIDERS: PCP Nurse Practitioner Obstetrics & Gynecology; Visit Provider Nurse Practitioner Obstetrics & Gynecology
DX: Z12.31 Encounter for screening mammogram for malignant neoplasm of breast (principal)
CPT/HCPCS: 77063; 77067

== ENCOUNTER 2025-05-05 13:21 | Outpatient (CLI) | payer MEDICARE, SELFPAY ==
[2025-05-05 14:43] LABS: Coronavirus 19, PCR Not Detected (NotDetected); Influenza A, PCR Not Detected (NotDetected); Influenza B, PCR Not Detected (NotDetected)
--- OUTSIDE RECORDS SUMMARY | 2025-05-06 12:26 | XMS_ITS | Clinical Summary ---
Author Organization [facility] Address [address] [place] [address] Phone Care Team Providers Care Mailmaster Name Role Phone Edmar Yin MD Primary Care Provider [phone] Social History Tobacco Use Types Packs/Day Years Used Date Smoking Tobacco: Never Assessed Comments Unknown Sex and Gender Information Value Date Recorded Sex Assigned at Not on file Legal Sex Female 6:01 AM EDT Gender Identity Not on file Sexual Orientation Not on file Plan of Treatment Health Maintenance Due Date Last Done Comments Annual Wellness Exam 1970 DTaP/TDaP/Td (1 - Tdap) 1986 Hepatitis B Vaccine (1 of 3 - 19+ 3-dose series) 1986 Cologuard 2012 Colon Cancer Screening 2012 Colonoscopy 2012 FIT 2012 Sigmoidoscopy 2012 Virtual Colonography 2012 Pneumococcal Vaccine 50+ (1 of 1 - PCV) 2017 Zoster (1 of 2) 2017 COVID-19 Vaccine (2023-2 5 season) 2024 Influenza Vaccine (#1) 2025 Meningococcal B Vaccine Aged Out No l onger eligible based on patient's age to complete this topic Care Teams Mailmaster Relationship Specialty Start Date End Date Edmar Yin MD [address] [place] [address] PCP - General 07/10/13
--- OUTSIDE RECORDS SUMMARY | 2025-05-06 12:26 | XMS_ITS | Clinical Summary ---
Author Organization [facility] Address [address] [place] [address] Care Team Providers Care Full Stack Software Developer Name Role Phone Christina Cochran Primary Care Provider [phone] Social History Tobacco Use Types Packs/Day Years Used Date Smoking Tobacco: Never Assessed Abuse Screen Answer Date Recorded Unsafe at Home or Work/School Not on file Feels Threatened by Someone? Not on file 06/2023 Does Anyone Keep You from Co ntacting Others or Doint Things Outside the Home? Not on file 07/24/2023 Physical Sign of Abuse Present Not on file 1 Housing Stability Answer Date Recorded Current Living Arrangements Not on file 06/2023 Potentially Unsafe Housing Conditions Not on keke e 07/24/2023 Family and Community Support Answer Yordan e Recorded Help with Day-to-Day Activities Not on file 07/24/2023 Lonely or Isolated Not on file 07/24/2023 Employment Answer Date Recorded Do you want help finding or keeping work or a aldair b? Not on file 07/24/2023 Disabilities Answer Date Recorded Concentrating, Remembering, or Making Decisions Difficulty Not on file 07/24/2023 Doing Errands Independently Difficulty Not on fi le 07/24/2023 Education Answer Date Recorded Help with school or training? Not on file Preferred Language Not on file 07/24/2023 Comments Unknown Sex and Gender Information Value Date Recorded Sex Assigned at Not on file Legal Sex Female 12:23 PM EDT Gender Identity Not on file Sexual Orientation Not on file Plan of Treatment Health Maintenance Due Date Last Done Comments ANNUAL PHYSICAL 1967 Annual Gynecologic Pelvic an d Breast Exam 1967 HEPATITIS C SCREENING 1967 TDAP/TD VACCINES (1 - Tdap) 1986 COLOGUARD 2012 COLON CANCER SCREENING 5 YEA R SIGMOIDOSCOPY 2012 COLONOSCOPY [address] CANCER SCREENING [address] COLONOGRAPHY 2012 FECAL OCCULT BLOOD TEST 2012 FIT Testing (1 year) 2012 MAMMOGRAM 07/18/2015 07/18/2013, 07/18/2013 ZOSTER VACCINE (1 of 2) 2017 COVID-19 Vaccine (1 - 2023-2 5 season) 2024 INFLUENZA VACCINE 07/16/2025 08/19/2022, , 08/01/2019, Additional history exists Pneumococcal Vaccine 50+ Completed 08/19/2022 Insurance [facility] Care Teams Full Stack Software Developer Relationship Specialty Start Date End Date Christina Cochran PA [address] [place] [address] PCP - General Physician Assembler [employer] 08/07/23
== END 2025-05-05 23:59 | disposition home or self-care (01) ==
LOC: LAB.DROPOF 05-06 12:20
PROVIDERS: PCP Student in an Organized Health Care Education/Training Program; Visit Provider Student in an Organized Health Care Education/Training Program
DX: J06.9 Acute upper respiratory infection, unspecified (principal); J02.9 Acute pharyngitis, unspecified
CPT/HCPCS: 87631

== ENCOUNTER 2025-08-21 11:11 | Outpatient (CLI) | payer MEDICARE, MEDICAID, SELFPAY ==
--- NOTE | 2025-08-21 11:00 | CT_ITS ---
FINAL REPORT CLINICAL HISTORY: lung cancer screening patient is a current smoker and smokes 8-10 cigarettes per day. patient has been a smoker for 30 years. patient has COPD. COMPARISON: No prior exam FINDINGS: Axial images were obtained from the lung apex to the mid abdomen by computed tomography. Low-dose protocol was utilized. CTDl vol(mGy): 2.90 DLP (mGy-cm): 108.64 FINDINGS: There is no axillary adenopathy. There is no hilar or mediastinal adenopathy. The heart size is normal. There is no pericardial or pleural effusion. Limited images of the upper abdomen are unremarkable. There is degenerative disc disease in the thoracic spine. Lung window images demonstrate no suspicious infiltrate or nodule. IMPRESSION: Lung RADS category 1. Recommend 12 month follow-up low-dose chest CT. Reviewed, Interpreted and Dictated by Eddie Jc MD Transcribed by Nataly Yost Authenticated and [facility]
--- OUTSIDE RECORDS SUMMARY | 2025-08-21 11:14 | XMS_ITS | Data Portability ---
Author Organization [facility] Fabian & AMBER Mcnally ADMIN Address [address] [place] [address] Care Team Providers Care Lens Assistant Name Role Phone ANDREW MILLS Primary Care Provider Assessment No assessment recorded. Plan of Treatment Reminders Order Date Submit Date Provider Last Modified By Organization Details Last Modified Time Details Appointments None recorded . Lab None recorded . Referral pulmonar y rehab referral 2022 023 [facility] Card[facility]Pul[facility] y Rehabilitation Program, [address], [address], [place], [address], 3 10:43:10 pulmonar y rehab referral 2022 023 [facility], [address], [address], [place], [address], 3 16:57:47 pulmonar y rehab referral 2021 022 [email or web address] Cardio/Pulmonar y Rehabilitation Program, [address], [address], [place], [address], 2 16:00:48 Procedures None recorded . Surgeries None recorded . Imaging PFT, plethysm ography [address] (Centralized Scheduling), [address], [place], [address], 3 07:39:50 LDCT, chest, for lung cancer screenin g - 1- Did patient particip ate in a shared decision -making session with the provider ? YES 2- Is patient age between 50-77 years old? YES 3- Did patient smoke at least 20 pack year? YES 4- Is patient current smoker or quit smoking within the last 15 years? YES 5- Is the patient asymptom atic (no signs or symptoms of lung cancer)? YES [address] (Centralized Scheduling), [address] , [place], [address], 3 13:18:35 PFT, plethysm ography [address] (Centralized Scheduling), [address], [place], [address], 3 10:23:33 LDCT, chest, for lung cancer screenin g - 1- Did patient particip ate in a shared decision -making session with the provider ? YES 2- Is patient age between 50-77 years old? YES 3- Did patient smoke at least 20 pack year? YES 4- Is patient current smoker or quit smoking within the last 15 years? YES 5- Is the patient asymptom atic (no signs or symptoms of lung cancer)? YES 2022 023 [facility] (Centralized Scheduling), [address], [place], [address], 3 09:00:46 PFT, plethysm ography 2021 022 [facility] (Centralized Scheduling), [address] [place], [address], 2 10:52:30 LDCT, chest, for lung cancer screenin g 2021 023 [facility] (Centralized Scheduling), [address] [place], [address], 3 11:18:59 Medication Orders Daliresp 500 mcg tablet 2022 023 [facility] [address] [place], [address], 11:19:23 Mucinex 1,200 mg tablet, extended release 2021 022 [facility] [address] [place], [address], 11:59:30 Patient TargetsNo targets recorded. Patient Instructions Encounter Date Encounter Id Patient Instructions Last Modified By Organization Details Last Modified Time 08/31/2022 [id number] smoking cessatio n counseling, greater than 3 minutes up to 10 minutes* [email or web address] Not available 08/31/2022 10:50:41 03/06/2023 [id number] smoking cessatio n counseling, greater than 3 minutes up to 10 minutes* [email or web address] Not available 03/06/2023 11:19:11 Reason for Referral Pulmonary Rehab Referral for Pulmonary emphysema Referring Physician: Alina Lunsford Pulmonary Disease, Encounter Date: 08/31/2022 Pulmonary Rehab Referral for Pulmonary emphysema Referring Physician: Alina Lunsford Pulmonary Disease, Encounter Date: 03/06/2023 Pulmonary Rehab Referral for Pulmonary emphysema Referring Physician: Alina Lunsford Pulmonary Disease, Encounter Date: 07/03/2023 Results Created Date Observation Date Name Description Value Unit Range Abnormal Flag Note LastModifiedBy Organization Detail LastModifiedTime Result Notes None recorded. Problems Name Problem SNOMED Code Status Onset Date Resolution Date Notes Provider Name and Address Organization Details Recorded Time Pulmonary emphysema 17345666 Active [address], [place], [address] , [facility] [place] 10:44:12 Dyspnea on exertion 05374799 Active [address], [place], [address] , [place] - [facility] [place] 2 10:44:22 Tobacco dependence caused by cigarettes 2578324354574 9107 Active 2021 Alina Lunsford MD [address], [place], [address] , [place] - [facility] [place] 2 10:44:56 Chronic hypoxemic respirator y failure 450887370 Active 2021 Alina Lunsford MD [address], [place], [address] , [place] - [facility] [place] 2 10:58:34 Obstructiv e sleep apnea syndrome 87189680 Active 2022 Alina Lunsford MD [address], [place], [address] , [facility] - [facility] [place] 3 10:40:14 Morbid obesity 234105229 Active 2022 Alina Lunsford MD [address], [place], [address] , [place] - [facility] [place] 3 10:40:19 Problem Notes None recorded. Procedures Surgical History Date Name Laterality Status Provider Name and Address Organization Details Recorded Time 1 Date of Last Pap Smear completed Adrian Brush LUDWIG - [facility] [place] 03/06/2023 10:43:05 1 completed Adrian MUNROE - [facility] [place] 03/06/2023 10:43:05 8 Back Surgery completed Adrian MUNROE - [facility] [place] 03/06/2023 10:43:16 0 Supplier Quality Surgery completed Adrian MUNROE - [facility] [place] 03/06/2023 10:43:16 Imaging Results None recorded. Procedure Notes None recorded. Medical Equipment None Reported. Allergies Allergen ID Allergen Name Allergen Category Reaction Reaction Severity Criticality Documentation Date Start Date Code Code System Note Provider Name and Address Organization Details Recorded Time 66285 tree nut food headache severe Not available 03/06/2023 Adrian griffin, [facility] & [place] 3 10:42:56 23178 grass pollen environme nt,medica tion respirato ry distress moderate Not available 03/06/2023 Adrian griffin, [facility] [place] 3 10:42:56 60985 mold extract environme nt eye swelling severe Not available 03/06/2023 79104 8 RxNorm Adrian griffin, [facility] & [place] 3 10:42:56 65740 POLLEN EXTRACTS environme nt,medica tion cough severe Not available 06/14/2023 49386 6 RxNorm Mavis griffin, [facility] & [place] 3 10:43:05 99600 tree and shrub pollen environme nt,medica tion cough severe Not available 06/14/2023 Mavis Iraheta null, [facility] & [place] 3 10:43:05 71365 house dust mite environme nt cough moderate Not available 06/14/2023 Mavis griffin, [facility] [place] 3 10:43:05 Medications Name Sig Start Date Stop Date Status Note LastModified by Organization Details LastModified Time amoxicillin 500 mg capsule TAKE 1 CAPSULE BY MOUTH THREE TIMES DAILY FOR 7 DAYS 08/31 completed Not Available Not Available Not Available prednisone 10 mg tablet TAKE 6 TABLETS ON DAY 1 THEN TAKE 5 TABLETS ON DAY 2 THEN TAKE 4 TABLETS ON DAY 3 THEN TAKE 3 TABLETS ON DAY 4 THEN TAKE 2 TABLETS ON DAY 5 THEN TAKE 1 TABLET ON DAY 6. TAKE ALL DOSES WITH FOOD. 07/03 completed Not Available Not Available Not Available albuterol sulfate 2.5 mg/3 mL (0.083 %) solution for nebulizatio n USE 1 VIAL IN NEBULIZER TWICE DAILY active Not Available Not Available No t Available ibuprofen 800 mg tablet TAKE 1 TABLET BY MOUTH TWICE DAILY NEEDED active Not Available Not Available No t Available prednisone 20 mg tablet TAKE 2 TABLETS BY MOUTH ONCE DAILY 08/31 completed Not Available Not Available Not Available penicillin V potassium 500 mg tablet TAKE 1 TABLET BY MOUTH TWICE DAILY 07/03 completed Not Available Not Available Not Available ciprofloxac in 500 mg tablet 08/31 completed Not Available Not Available Not Available levothyroxi ne 75 mcg tablet TAKE 1 TABLET BY MOUTH ONCE DAILY-AUGUSTUS RODRIGUEZ AN APPOINTME NT FOR FURTHER REFILLS active Not Available Not Available No t Available amoxicillin 875 mg tablet TAKE 1 TABLET BY MOUTH TWICE DAILY active Not Available Not Available No t Available benzonatate 100 mg capsule TAKE 1 CAPSULE BY MOUTH THREE TIMES DAILY NEEDED 08/31 completed Not Available Not Available Not Available olopatadine 0.1 % eye drops active Not Available Not Available Not Available nicotine 21 mg/24 hr daily transdermal patch active Not Available Not Available Not Available hydrocortis one 2.5 % topical cream active Not Available Not Available Not Available montelukast 10 mg tablet TAKE 1 TABLET BY MOUTH ONCE DAILY active Not Available Not Available No t Available levofloxaci n 500 mg tablet TAKE 1 TABLET BY MOUTH ONCE DAILY active Not Available Not Available No t Available methylpredn isolone 4 mg tablets in a dose pack TAKE BY MOUTH DIRECTED ON INSIDE OF PACKAGE active Not Available Not Available No t Available Zoloft 25 mg tablet Take 1 tablet every day by oral route. active Not Available Not Available No t Available bromphenira mine-pseudo ephedrine-D M 2 mg-30 mg-10 mg/5 mL oral syrup 08/31 completed Not Available Not Available Not Available clobetasol 0.05 % scalp solution APPLY SOLUTION TOPICALLY TWICE DAILY active Not Available Not Available No t Available cefdinir 300 mg capsule TAKE 1 CAPSULE BY MOUTH TWICE DAILY 08/31 completed Not Available Not Available Not Available fluticasone propionate 50 mcg/actuati on nasal spray,suspe nsion USE 2 SPRAY(S) IN EACH NOSTRIL ONCE DAILY active Not Available Not Available No t Available sertraline 50 mg tablet TAKE 1 & 1/2 (ONE & ONE-HALF) TABLETS BY MOUTH ONCE DAILY active Not Available Not Available No t Available amoxicillin 875 mg-potassiu m clavulanate 125 mg tablet TAKE 1 TABLET BY MOUTH EVERY 12 HOURS FOR 7 DAYS 07/03 completed Not Available Not Available Not Available Ventolin HFA 90 mcg/actuati on aerosol inhaler INHALE 2 PUFFS BY MOUTH EVERY 4 HOURS NEEDED active Not Available Not Available No t Available azithromyci n 500 mg tablet TAKE 1 TABLET BY MOUTH ONCE DAILY FOR 5 DAYS 08/31 completed Not Available Not Available Not Available Allergy Relief (diphenhydr amine) 25 mg capsule active Not Available Not Available N ot Available Mucinex 1,200 mg tablet, extended release Take 1 tablet twice a day by oral route for 30 days. 2021 active Not Available Not Available Not Avai lable Mucus Relief ER 600 mg tablet, extended release TAKE 1 TABLET BY MOUTH EVERY 12 HOURS active Not Available Not Available No t Available Lubricant Eye (PG-PEG 400) 0.4 %-0.3 % drops active Not Available Not Available Not Available roflumilast 500 mcg tablet TAKE 1 TABLET BY MOUTH ONCE DAILY FOR 30 DAYS active Not Available Not Available No t Available fluticasone furoate 100 mcg-vilante rol 25 mcg/dose inhalation powder active Not Available Not Available Not Available Breo Ellipta 200 mcg-25 mcg/dose powder for inhalation Inhale 1 puff every day by inhalatio n route. active Not Available Not Available No t Available Trelegy Ellipta 100 mcg-62.5 mcg-25 mcg powder for inhalation INHALE 1 PUFF INTO LUNGS ONCE DAILY active Not Available Not Available No t Available Trelegy Ellipta 200 mcg-62.5 mcg-25 mcg powder for inhalation INHALE 1 PUFF ONCE DAILY 08/31 completed Not Available Not Available Not Available BinaxNOW COVID-19 Ag Self Test kit USE DIRECTED 03/06 completed Not Available Not Available Not Available Vitals Date Recorded Body height Body mass index (BMI) Body weight Body temperature Oxygen saturation Oxygen saturation in Arterial blood by Pulse oximetry Heart rate Systolic And Diastolic Provider Name and Address Organization Details Last Updated DateTime 3 172.72 cm 34 kg/m2 389313. 89 g 98.6 [degF] 98 % 98 % 83 /min 148/84 mm[Hg] Adrian alvarado [place] - [facility] - [place] [facility] [place] 3 10:42:38 Date Recorded Body height Body mass index (BMI) Body weight Body temperature Oxygen saturation Oxygen saturation in Arterial blood by Pulse oximetry Heart rate Systolic And Diastolic Provider Name and Address Organization Details Last Updated DateTime 3 172.72 cm 34.7 kg/m2 336256. 06 g 98.6 [degF] 94 % 94 % 98 /min 161/88 mm[Hg] Adrian Bell christiano [facility] & [place] 3 10:25:41 Date Recorded Body weight Body mass index (BMI) Body height Body temperature Oxygen saturation Oxygen saturation in Arterial blood by Pulse oximetry Heart rate Systolic And Diastolic Provider Name and Address Organization Details Last Updated DateTime 2 397859. 8 g 35.9 kg/m2 172.72 cm 98.2 [degF] 94 % 94 % 75 /min 150/89 mm[Hg] Mamie Soto [facility] & [place] 2 09:46:10 Social History Question Answer Notes LastModified by Gimmie Details LastModified Time Tobacco Smoking Status Former Smoker [facility] [place] 03/06/2023 10:43:12 Do You Have An Advance Directive? No [email or web address] Information not available 03/06/2023 Are You Blind Or Do You Have Difficulty Seeing? No [email or web address] Information not available 03/06/2023 What Is Your Level Of Caffeine Consumption? None Information not available 07/03/2023 What Was The Date Of Your Most Recent Tobacco Screening? 08/29/2022 [email or web address] Information not available 03/06/2023 What Is Your Current Pack Years? 30ormorepack years Information not available 07/03/2023 At What Age Did You Start Smoking Tobacco? 22 Information not available 07/03/2023 Are You Passively Exposed To Smoke? No [email or web address] Information not available 03/06/2023 How Much Tobacco Do You Smoke? 1 PPD 1.5 Information not available 08/31/2022 How Many Years Have You Smoked Tobacco? 30 [email or web address] Information not available 03/06/2023 Sex: Female Functional Status Question Answer Note LastModified by Selo Reservaizat ion Details LastModified Time Do you use any illicit or recreational drugs? No [email or web address] Information not available 08/31/2022 What is your level of alcohol consumption? Occasional Information not available 08/31/2022 Do you or have you ever used smokeless tobacco? Never used smokeless tobacco [email or web address] Information not available 03/06/2023 What is your exercise level? Occasional [email or web address] Information not available 03/06/2023 Mental Status Question Answer Note LastModified by Organization D etails LastModified Time Do you feel stressed (tense, restless, nervous, or anxious, or unable to sleep at night)? [id number] [email or web address] Information not available 03/06/2023 Family History Relationship Description Onset Age of this Age Resolved Age Notes LastModified by Organization Details LastModified Time Son Allergy pt. added direct ly (08/29) [email or web address] Not available 08/29/2022 15:08:45 Mother Allergy pt. added direct ly (08/29) [email or web address] Not available 08/29/2022 15:08:45 Brother Allergy pt. added direct ly (08/29) [email or web address] Not available 08/29/2022 15:08:45 Sister Allergy pt. added direct ly (08/29) [email or web address] Not available 08/29/2022 15:08:45 Medical History Condition Response Arthritis Y Headaches Y Back Problems Y Thyroid Problems Y Obstructive Sleep Apnea Y COPD Y Gynecological History Statement/Question Response Abnormal Pap N 07/19/2021 Date of LMP 12/17/2017 Sexually Active? Y Menses Monthly N Date of Last Pap Smear 08/20/2021 Current Control Method Tubal Ligat ion Age at Menarche 17 Obstetrics History GPAL:G 0 P 0 0 0 0 Past Encounters Encounter ID Performer Location Encounter Start Date Encounter Closed Date Diagnosis/Indication Diagnosis SNOMED-CT Code Diagnosis ICD10 Code Diagnosis IMO Codes Diagnosis Note [id number] Alina Lunsford MD [facility] Pulmonolo gy [address] [facility] [place] [address] 08/31/2022 09:33:38 08/31/2022 10:10:49 Pulmonary emphysema 64525549 J43.9 Spirometry done in the office today showed evidence of obstructio n with decrease in FEV1 down to 28% predicted and that was reviewed and discussed with the patient.Sathish patterson instructed to continue with the use of Trelegy and Daliresp daily.Carolina ent to use her Ryann on a p.r.n. basis.Will refer patient to the pulmonary rehab program and check full PFTs prior to that.Patie nt to call if there is any new symptoms.Talib beckwith is up-to-date on her flu vaccine for this season.Pat ient to use Mucinex as needed for thick secretions . Dyspnea on exertion 6084 5006 R06.09 Patient recommende d to exercise as tolerated and use her Ryann on a p.r.n. basis. Tobacco de pendence caused by cigarettes [id number] 5205109 F17.210 Patient counseled extensivel y to quit smoking completely and will continue follow this up. Patient given informatio n regarding smoking cessation classes. Screening for malignant neoplasm of respiratory tract 068674523 Z12.2 The patient has participat ed in a shared decision making session during which potential risk and benefits of LDCT lung cancer screening were discussed. The patient was informed of the importance of adherence to annual screening, impact of comorbidit ies, the ability/wi llingness to undergo diagnosis and treatment. The patient was informed of the importance of smoking cessation and/or maintainin g smoking abstinence , including the offer of Medicare-c over tobacco cessation counseling services, if applicable . The patient is asymptomat ic (no symptoms such as fever, chest pain, new shortness of breath, new or changing cough, coughing up blood, or unexplaine d significan t weight loss). Chronic hy poxemic respiratory failure 734643747 J96.11 Patient instructed to continue with the use of oxygen and titrate to maintain O2 saturation above 90%. Will arrange for the patient to have POC to use. [id number] Alina Lunsford MD [facility] Pulmonolo gy [address] [facility] [place] [address] 03/06/2023 10:32:09 03/06/2023 11:06:16 Pulmonary emphysema 14782676 J43.9 Patient instructed to continue with the use of Trelegy and Daliresp daily.[place] ent to use her Ryann on a p.r.n. basis.Will refer patient to the pulmonary rehab program and check full PFTs as patient did not do either of these order since last visit.Carolina ent to call if there is any new symptoms. Dyspnea on exertion 6084 5006 R06.09 Patient recommende d to exercise as tolerated and use her Ryann on a p.r.n. basis. Tobacco de pendence caused by cigarettes 9519607669 8299804 F17.210 Patient counseled extensivel y to quit smoking completely and will continue follow this up. Screening for malignant neoplasm of respiratory tract 564897759 Z12.2 The patient has participat ed in a shared decision making session during which potential risk and benefits of LDCT lung cancer screening were discussed. The patient was informed of the importance of adherence to annual screening, impact of comorbidit ies, the ability/wi llingness to undergo diagnosis and treatment. The patient was informed of the importance of smoking cessation and/or maintainin g smoking abstinence , including the offer of Medicare-c over tobacco cessation counseling services, if applicable . The patient is asymptomat ic (no symptoms such as fever, chest pain, new shortness of breath, new or changing cough, coughing up blood, or unexplaine d significan t weight loss). Chronic hy poxemic respiratory failure 488755777 J96.11 Patient instructed to continue with the use of oxygen and titrate to maintain O2 saturation above 90%.Will arrange for the patient to have POC to use as patient was unable to get a device so far due to her insurance restrictio n.Patient dropped her O2 saturation down to 87% on room air at rest in the clinic during her visit today. [id number] Alina Lunsford MD [facility] [address] [facility] [address] [place] [address] 07/03/2023 10:18:23 07/03/2023 10:39:00 Pulmonary emphysema 84573787 J43.9 Patient instructed to continue with the use of Trelegy and Daliresp daily.[place] ent to use her Ryann on a p.r.n. basis.Carolina xiong did not perform her PFTs or follow-up with the pulmonary rehab program so will send a new order.Will check alpha-1 antitrypsi n genotype by buccal mucosal swab in the office today.Carolina ent to call if there is any new symptoms. Dyspnea on exertion 6084 5006 R06.09 Patient recommende d to exercise as tolerated and use her Ryann on a p.r.n. basis. Tobacco de pendence caused by cigarettes [id number] 8656342 F17.211 patient quit smoking about 7 months ago and will continue follow this up.Patient did not perform her low-dose CT of the chest For early lung cancer detection so will send a new order. Screening for malignant neoplasm of respiratory tract 602108538 Z12.2 The patient has participat ed in a shared decision making session during which potential risk and benefits of LDCT lung cancer screening were discussed. The patient was informed of the importance of adherence to annual screening, impact of comorbidit ies, the ability/wi llingness to undergo diagnosis and treatment. The patient was informed of the importance of smoking cessation and/or maintainin g smoking abstinence , including the offer of Medicare-c over tobacco cessation counseling services, if applicable .The patient is asymptomat ic (no symptoms such as fever, chest pain, new shortness of breath, new or changing cough, coughing up blood, or unexplaine d significan t weight loss). Chronic hy poxemic respiratory failure 704558335 J96.11 Patient instructed to continue with the use of oxygen and titrate to maintain O2 saturation above 90%. Obstructiv e sleep apnea syndrome 72473170 G47.33 Patient instructed to continue with the use of her CPAP regularly and to comply with the cleaning instructio ns and supply changes. Morbid obesity 891819955 E66.01 Patient recommende d diet and exercise in order to lose weight. Health Concerns Section Related Observation LastModified by Organization Detai ls LastModified Time None Recorded Concern Status LastModified by Organization Details LastModified Time None Recorded Advance Directives Directive N: Payers Insurance Date Sequence Insurance Name Policy Number Policy Rees Covered Member ID Rees Member ID Guarantor Name 10/22/2023 1 [employer] [facility] (MEDICAID HMO) Milanaprabha Brunerers [id number] Milana Gino Notes Date Note Type Note Provider Name and Address Organization Details Recorded Time 08/31/2022 text/html Patient presents to the office today for hospital follow-up visit. Patient states that she is significantly better since discharge from the hospital. She is using her Trelegy regularly. She is using Ryann about twice a day. She denies fever, chills or diaphoresis. No chest pain, angina or palpitation. No PND or orthopnea. Patient denies wheezing or hemoptysis. Patient smoking significantly less than before. Patient using her CPAP regularly at night. Patient denies significant change in her appetite and had some weight loss. Alina Lunsford MD [address], [place], [address], [facility] [place] 08/31/2022 11:59:32 03/06/2023 text/html Patient presents to the office today for follow-up visit. Patient states that her dyspnea at rest and with exertion are better with the use of Trelegy daily and Ryann about once or twice a day. She denies fever, chills or diaphoresis. No chest pain, angina or palpitation. No PND or orthopnea. Patient denies wheezing or hemoptysis. Patient denies significant change in her weight or appetite. Patient states that she is smoking couple cigarettes a day. Alina Lunsford MD [address], [place], [address] [place] 03/06/2023 11:22:11 07/03/2023 text/html Patient presents to the office today for follow-up visit. Patient states that she is doing fairly well without significant shortness breath at rest and improvement in her dyspnea on exertion. She is using her Trelegy daily and Ryann about once a week. She denies fever, chills or diaphoresis. No chest pain, angina or palpitation. No PND or orthopnea. Patient denies wheezing or hemoptysis. Patient denies significant change in her appetite and had increase in her weight. Patient using her CPAP regularly at night. Alina Lunsford MD [address], [place], [id number], [facility] [place] 07/03/2023 10:41:22 OBGyn Episode No OBEpisode recorded.
--- OUTSIDE RECORDS SUMMARY | 2025-08-21 11:14 | XMS_ITS | Clinical Summary ---
[facility] Address [address] [place] [address] Care Team Providers Care Framing Manager Name Role Phone Christina Cochran Primary Care Provider Social History Tobacco Use Types Packs/Day Years [...] 07/18/2013 ZOSTER VACCINE (1 of 2) 2017 INFLUENZA VACCINE 05/16/2025 08/19/2022, , 08/01/2019, Additional history exists Pneumococcal Vaccine 50+ Completed 08/19/2022 Insurance [facility] Care Teams Framing Manager Relationship Specialty Start Date End Date Christina Cochran PA [address] [place] [address] PCP - General Physician Logistics Associate 08/07/23
== END 2025-08-21 23:59 | disposition home or self-care (01) ==
LOC: RAD 11:12
PROVIDERS: PCP Physician Assistant Medical; Visit Provider Internal Medicine Pulmonary Disease
DX: Z12.2 Encounter for screening for malignant neoplasm of respiratory organs (principal); F17.210 Nicotine dependence, cigarettes, uncomplicated; J44.9 Chronic obstructive pulmonary disease, unspecified; M51.34 Other intervertebral disc degeneration, thoracic region
CPT/HCPCS: 71271

== ENCOUNTER 2025-09-09 11:03 | Outpatient (CLI) | payer MEDICARE, MEDICAID, SELFPAY ==
--- NOTE | 2025-09-09 11:07 | XR_ITS ---
FINAL REPORT CLINICAL HISTORY: Shortness of Breath, cough COMPARISON: 07/03/2024 FINDINGS: PA and lateral views of the chest were obtained. The cardiac and mediastinal silhouettes are within normal limits. The lungs are clear. There is no pleural effusion or pneumothorax. There are stable compression fractures of the mid thoracic spine. IMPRESSION: No radiographic evidence of acute cardiac or pulmonary disease. Reviewed, Interpreted and Dictated by Pallavi Marcos MD Transcribed by Analisa Brambila Authenticated and [facility]
--- OUTSIDE RECORDS SUMMARY | 2025-09-09 11:10 | XMS_ITS | Clinical Summary ---
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
== END 2025-09-09 23:59 | disposition home or self-care (01) ==
LOC: RAD 11:04
PROVIDERS: PCP Physician Assistant Medical; Visit Provider Internal Medicine Pulmonary Disease
DX: J44.1 Chronic obstructive pulmonary disease with (acute) exacerbation (principal)
CPT/HCPCS: 71046